=== PATIENT | male | born 1980 | race Caucasian/White ===

== ENCOUNTER 2019-05-13 14:28 | Emergency (ER) | payer SELFPAY | END 2019-05-13 15:05 | disposition left against medical advice (07) | LOC: ER 16:02 | PROVIDERS: Emergency Provider Emergency Medicine | DX: Z53.21 Procedure and treatment not carried out due to patient leaving prior to being seen by health care provider (principal) | CPT/HCPCS: 99281 ==

== ENCOUNTER 2019-05-22 09:58 | Emergency (ER) | payer SELFPAY ==
[2019-05-22 10:09] VITALS: BMI 25.0
[2019-05-22 10:16] VITALS: BP 149/94; PULSE 97; RESP 16; TEMP 36.7; O2SAT 97
--- NOTE | 2019-05-22 10:50 | ED_ITS ---
HPI - Psych General: Chief Complaint: Psychiatric Symptoms Stated Complaint: Cant sleep Time Seen by Provider: 05/22/19 10:40 Source: patient Mode of arrival: ambulatory Limitations: no limitations History of Present Illness: HPI Narrative: Patient comes in today for complaints of depression and difficulty sleeping. Patient routinely takes trazodone and prazosin but has been without the medication for about 3 months now. Patient states he been trying to deal with his depression and insomnia. Patient reports is been real difficult due to his father having some health prob lems. Patient had contacted behavioral health counseling, [facility], and was referred to the ER to restart medications. Patient would also like to have referral to a specialist for his back pain. Associated symptoms: Reports depression Details of plan: no plan Review of Systems General: Reports: 10 or more systems reviewed and unremarkable except in HPI and below Musc: Reports: back pain Psych: Reports: depression PFSH ED PFSH: Statuses (acute, chronic, etc) shown below reflect problem list status as previously entered and may not be historically accurate Social History Smoking and tobacco status: current every day smoker Physical Exam Const: COMMON NORMALS: no apparent distress and oriented x3 GENERAL APPEARANCE: cooperative HENMT: COMMON NORMALS: normocephalic, external ears normal, EAC's normal, TM's normal bilaterally and external nose normal HEAD & SCALP: normal to inspection and normocephalic FACE & SINUS: normal facial exam NOSE: external nose normal GENERAL EAR: hearing not grossly impaired EXTERNAL EAR: Yes external ears normal EXTERNAL AUDITORY CANAL: EAC's normal TYMPANIC MEMBRANE: TM's normal bilaterally MOUTH: oral and palatal mucosa normal THROAT: posterior oropharynx normal Eye: COMMON NORMALS: PERRL and EOMs intact bilaterally PUPIL: Yes PERRL Neck/C-Spine: COMMON NORMALS: full ROM and no lymphadenopathy Lymph: LYMPHATIC: no lymphedema noted Chest: COMMONS NORMALS: inspection of chest normal and palpation of chest normal Resp: COMMON NORMALS: normal respiratory effort and clear to auscultation bilaterally AUSCULTATION: clear to auscultation bilaterally Cardio: COMMON NORMALS: regular rate and regular rhythm RATE: regular rate RHYTHM: regular rhythm GI: COMMON NORMALS: normal to inspection, nondistended, normoactive bowel sounds and non-tender : COMMON NORMALS: Yes no CVA tenderness BLADDER/KIDNEY EXAM: Yes no CVA tenderness Back/Pelvis: COMMON NORMALS: no CVA tenderness LUMBAR SPINE/LOWER BACK: Yes paraspinal muscle tenderness Extremity: COMMON NORMALS: normal to inspection GENERAL: No edema Neuro: COMMON NORMALS: oriented x3, moves all extremities and no focal motor deficits Psych: COMMON NORMALS: mental status grossly normal and cooperative Skin: COMMON NORMALS: no rashes or lesions noted GENERAL SKIN EXAM: no rashes or lesions noted MDM - Psych MDM Narrative: Medical decision making narrative: Patient comes in today for medication for his depression. Patient reports being out of his medications for last 4 months due to recent move into the area. Patient contacted behavioral health counseling and was referred to the ER to restart medications. Exam notes respirations are even lungs are clear to auscultation. Skin is warm and dry color is pink. Differential diagnosis includes depression, suicidal ideation, insomnia, malingering, alcohol abuse. Laboratory values were insignificant for any abnormality. Contacted Dr. Escobar for clearance of positive depression screening. He cleared the patient having suicidal ideation. We will also restart patient on his sertraline for 50 mg daily, trazodone 100 mg at bedtime, and prazosin 1 mg at bedtime. Patient reports understanding agreed to treatment plan and need for follow-up. Case management was requested for patient assistance with referral to [facility], and spinal specialist for chronic back pain, which patient requested. Lab Data: Labs: Lab Results 05/22/19 05/22/19 05/22/19 Range/Units 10:58 11:00 11:00 WBC 6.6 (4.0-10.0) 10^3/ uL RBC 5.48 H (4.1-5.3) 10^6/u L Hgb 16.6 (11.7-16.6) g/dL Hct 52.3 H (42.0-52.0) % MCV 95.4 H (80-94) fL MCH 30.3 (28.0-34.0) pg MCHC 31.7 (30.0-36.0) g/dL RDW 13.5 (12.1-15.1) % Plt Count 286 (130-400) 10^3/c mm MPV 9.2 (7.4-10.4) fL Neut % (Auto) 61.2 % Lymph % (Auto) 26.2 % Lares % (Auto) 7.8 % Eos % (Auto) 3.6 % Baso % (Auto) 0.6 % Neut # (Auto) 4.1 (1.8-7.7) 10^3/u L Lymph # (Auto) 1.7 (0.8-4.8) 10^3/u L Lares # (Auto) 0.5 (0.2-0.9) 10^3/u L Eos # (Auto) 0.2 (0.0-0.8) 10^3/u L Baso # (Auto) 0.0 (0.0-0.1) 10^3/u L Nucleated RBC % (a uto) 0 % Nucleated RBCs # 0.0 /100WBC Sodium 138 (136-145) mmol/L Potassium 4.5 (3.5-5.1) mmol/L Chloride 101 (98-107) mmol/L Carbon Dioxide 27 (22-29) mmol/L Anion Gap 14.5 (5-19) BUN 17 (6-20) mg/dL Creatinine 1.0 (0.7-1.2) mg/dL GFR Calculation 84.5 L (90-130) mL/min Glucose 105 (74-109) mg/dL Calcium 10.0 (8.5-10.5) mg/dL Total Bilirubin 0.3 (0.15-1.2) mg/dL AST 27 (0-40) U/L ALT 30 (0-41) U/L Alkaline Phosphata se 82 (40-130) IU/L Total Protein 7.6 (6.6-8.7) g/dL Albumin 5.2 (3.5-5.2) g/dL Globulin 2.4 (1.3-4.6) g/dL Urine Color Yellow (Yellow) Urine Appearance Clear (CLEAR) Urine pH 6.0 (5-7) Ur Specific Gravit y 1.015 (1.005-1.030) Urine Protein Neg (Negative) Urine Glucose (UA) Norm (Normal) Urine Ketones Negative (Negative) Urine Occult Blood 2+ H (Negative) Urine Nitrate Negative (Negative) Urine Bilirubin Neg (NEGATIVE) Urine Urobilinogen Norm (Negative) mg/dL Ur Leukocyte Shannan ase Negative (Negative) Urine RBC 0-4 H (0-2) /hpf Urine WBC None (0-5) /hpf Ur Squamous Epith Cells 5-10 H (0-5) Urine Bacteria Trace (NONE) Urine Mucus 2+ Salicylates < 0.3 L (3-10) mg/dL Acetaminophen < 5.0 L (10-30) ug/mL Discharge Plan Discharge Patient Disposition: Home, Self-Care Clinical Impression: Depression Qualifiers: Depression Type: major depressive disorder Major depression recurrence: recurrent Active/Remission status: currently active Major depression episode severity: moderate Qualified Code(s): F33.1 - Major depressive disorder, recurrent, moderate Insomnia Qualifiers: Insomnia type: unspecified Qualified Code(s): G47.00 - Insomnia, unspecified Condition: Stable Prescriptions: New sertraline 50 mg tablet 50 mg PO DAILY Qty: 30 RF: 0 prazosin 1 mg capsule 1 mg PO DAILY Qty: 30 RF: 0 trazodone 100 mg tablet 100 mg PO DAILY Qty: 30 RF: 0 Discharge Orders: Discharge Order (Routine); Ordered 05/22/19 Ordered By: Yimi Harrington Discharge Diet: Usual diet Discharge Activity: Resume usual activity Activity Restrictions/Additional Instructions: Follow-up with [facility], Behavioral Health Counseling Drink plenty of fluids Health diet Avoid alcohol with medications Case management will contact you in regards to referral to [facility] and back specialist Discharge Date/Time: 05/22/19 12:11 Coding Level of Care Code ED Optometric Coordinator for Alejandro Barraza Exam Problem Focused
[2019-05-22 11:08] LABS: Basophils % 0.6 %; Eosinophils # 0.2 10^3/uL (0.0-0.8); Eosinophils % 3.6 %; Hematocrit 52.3 % (42.0-52.0); Hemoglobin 16.6 g/dL (11.7-16.6); Lymphocytes # 1.7 10^3/uL (0.8-4.8); Lymphocytes % 26.2 %; Mean Corpuscular HGB Conc 31.7 g/dL (30.0-36.0); Mean Corpuscular Hemoglobin 30.3 pg (28.0-34.0); Mean Corpuscular Volume 95.4 fL (80-94); Mean Platelet Volume 9.2 fL (7.4-10.4); Monocytes # 0.5 10^3/uL (0.2-0.9); Monocytes % 7.8 %; Neutrophils # 4.1 10^3/uL (1.8-7.7); Neutrophils % 61.2 %; Nucleated Red Blood Cells % 0 %; Platelet Count 286 10^3/cmm (130-400); Red Blood Count 5.48 10^6/uL (4.1-5.3); Red Cell Distribution Width 13.5 % (12.1-15.1); White Blood Count 6.6 10^3/uL (4.0-10.0)
[2019-05-22 11:26] LABS: Alanine Aminotransferase 30 U/L (0-41); Albumin Level 5.2 g/dL (3.5-5.2); Alkaline Phosphatase 82 IU/L (40-130); Anion Gap 14.5 (5-19); Aspartate Amino Transferase 27 U/L (0-40); Blood Urea Nitrogen 17 mg/dL (6-20); Carbon Dioxide 27 mmol/L (22-29); Chloride 101 mmol/L (98-107); Creatinine Clr Calc Pharmacy 119.0413; Globulin 2.4 g/dL (1.3-4.6); Glomerular Filtration Rate 84.5 mL/min (90-130); Glucose 105 mg/dL (74-109); Potassium 4.5 mmol/L (3.5-5.1); Sodium 138 mmol/L (136-145); Total Bilirubin 0.3 mg/dL (0.15-1.2); Total Protein 7.6 g/dL (6.6-8.7)
[2019-05-22 11:27] LABS: Add Urine Microscopic? YES; Bilirubin Urine Neg (NEGATIVE); Blood Urine 2+ (Negative); Glucose Urine UA Norm (Normal); Ketones Urine Negative (Negative); Leukocyte Esterase Urine Negative (Negative); Nitrate Urine Negative (Negative); Protein Urine Neg (Negative); Specific Gravity, Urine 1.015 (1.005-1.030); Urine Appearance Clear (CLEAR); Urine Color Yellow (Yellow); Urobilinogen Urine Norm (Negative)
[2019-05-22 11:30] LABS: Acetaminophen < 5.0 ug/mL (10-30); Salicylate < 0.3 mg/dL (3-10)
[2019-05-22 11:40] LABS: Add Urine Culture? No; Bacteria Urine TRACE; Mucus Urine 2+; RBC Urine 0-4 /hpf (0-2)
--- NOTE | 2019-05-22 11:53 | PM.PSYCN ---
Providers/Reason for Consult Consulting Physican/Specialty*: Psychiatry Reason for Consult*: Assess for eminent risk to self or others Psych Consult HPI History of Present Illness Joseph Cueva is a 38 year old male Who has been treated for clinical depression in the past. He presented to the emergency room at the [facility] for reinitiation of medication to help with sleep. During the screening process, he did relate that he does have thoughts of suicide from time to time and that the does have symptoms of depression. However he states that his suicidal ideations are fleeting. When he has them, distracts himself with work or doing something enjoyable or he will go talk with his Paramore who provides emotional support. His main complaint is one of persistent initial insomnia. Sleep is very erratic and he says that he gets perhaps one good night of sleep per week. This has been a prodrome to depressive symptoms in the past. His history is that he began being treated for depression in April 2018. He was started on Zoloft, prazosin, and trazodone. They were effective. However due to barriers in the medical system to getting refills on his medications, they were all stopped in January of this year. These medications were effective and well tolerated. He was on Zoloft 150 mg daily and does not know the dose of prazosin or trazodone. He was hoping that after 9 months of treatment, he would not have this problem any longer as he says he does not have a long history of mental health treatment. He reports that he has good heat capacity. He has some fatigue she does not know whether that's part of depression or insomnia. However there are events in the future that he is looking forward to. He engages in goal-directed enjoyable activities. He does not feel that he is clinically depressed at this time. Discharge Mental Status Exam: The patient is encountered and I emergency room #9. He is accompanied by his normal. Eye contact is good. He is believed to be a reliable informant the best of his ability. Information provided internally consistent and consistent with that in the medical record. Appearance: hygiene is good; no gross neurological deficits., gait is unremarkable; AIMS=0 Speech: Speech is of normal rate and rhythm and easily understood. Thought processes: Thought processes are abstract. Judgment is adequate for safety. Associations: intact Psychotic processes: There is no indication of guarding or paranoia. There is no attention to the internal stimuli. Auditory and visual hallucinations are denied. Judgment: Insight is fair. Problem solving skills are adequate for safety. Orientation: The patient is oriented to person, place time and situation. Memory: no deficits noted in immediate, intermediate, or remote spheres. Attention: The patient is alert and interpersonally engaged. Language: Verbalizations are coherent. Fund of knowledge: Fund of knowledge is adequate. Affect/Mood: Affect is consistent with a euthymic mood. denied suicidal ideation Affective range is appropriate. Psychosis: perception unimpaired except through cognitive distortion; reality testing intact. Diagnoses: Major depression?recurrent, mild severity Primary insomnia Indications: It is reasonable to reinitiate the trazodone prazosin out of the emergency room has improvements of sleep may significantly reduce his symptoms of depression and improve his resiliency in dealing with the stressors in his life. He states that he is intending to return the [facility] who sent him to the emergency room to re-establish treatment. He agrees to go there after being released from the emergency room to set up that appointment. It is not recommended that the Zoloft to be initiated at this time. It would be reasonable to provide a small dose of the Zoloft if the prazosin and trazodone do not resolve his depressive symptoms. However I'll refrain from putting him on the 150 mg dose without first testing response to a less robust treatment. Thank you for this interesting consult. If you have further concerns please do not contact me. PFSH NPU PFSH: Statuses (acute, chronic, etc) shown below reflect problem list status as previously entered and may not be historically accurate Social History Smoking and tobacco status: current every day smoker Vitals/I&O/Wt Last Vital Signs Temp 98.0 F 05/22/19 10:16 Pulse 97 05/22/19 10:16 Resp 16 05/22/19 10:16 BP 149/94 05/22/19 10:16 Pulse Ox 97 05/22/19 10:16 Weight last 48 hrs Weight 86.183 kg Attestations NPU Medical Necessity Statement*: Necessity for further care if up to the discretion of the physician of record. Coding Level of Care Code Acute Hardboard Panel Printer for Alejandro Barraza
[2019-05-22 12:11] VITALS: BP 132/85; PULSE 70; RESP 16; O2SAT 99
--- NOTE | 2019-05-23 14:52 | DCPLANNER ---
is project manager had message to speak with patient about a follow up appointment to [facility] and pain management. is project manager called [phone] spoke with grandmother, left a message for patient to return housing case manager phone call.
--- NOTE | 2019-05-28 10:38 | DCPLANNER ---
Patient called adult protective caseworker back, he stated that he needed a referral to [facility] and pain management. rn case manager explained to patient that for services at [facility] that he would need to do a walk in assessment to get things started. rn case manager gave patient the days and times that he could do that assessment. Patient also stated that he needed a referral to pain management. rn case manager explained to patient that he would have to get a primary care physician, and the referral to pain management has to come from a primary care physician. Patient stated that he would like to get a primary care physician. rn case manager called [facility], spoke with Jolie, a follow up appointment is scheduled for Thursday, June 06, 2019 at 1:00 with SENIOR IOS SOFTWARE ENGINEER, Yumi Garces. rn case manager called patient to inform patient of the scheduled appointment, unable to speak with patient at this time, a voicemail was left for patient to return adult protective caseworker phone call. Patient stated that he does not have insurance at this time, adult protective caseworker mailed patient both of the manager financial applications to fill out and turn in.
--- NOTE | 2019-06-13 09:16 | DCPLANNER ---
Patient came by hospital to see nurse outreach case manager about getting the associate financial analyst paperwork and about a follow up appointment. paid search manager gave patient the associate financial analyst paperwork. paid search manager looked and patient had missed his appointment scheduled with Amy at [facility]. paid search manager rescheduled his appointment for Sunday, June 18, 2019 at at 10:00 with Amy Garces at [facility]. paid search manager gave patient the appointment information. paid search manager explained to the patient that if he could not keep this appointment that he would need to call and cancel or reschedule, that he has one no show on him. paid search manager also explained the CPR[facility] program at [facility] that patient might be interested in.
--- NOTE | 2019-06-20 14:37 | DCPLANNER ---
Patient did not attend appointment scheduled for 06.06.19 at [facility] for primary care.
== END 2019-05-22 12:11 | disposition home or self-care (01) ==
PROVIDERS: Family Medicine; Emergency Provider Nurse Practitioner Family
DX: F33.1 Major depressive disorder, recurrent, moderate (principal); G47.00 Insomnia, unspecified; F17.210 Nicotine dependence, cigarettes, uncomplicated
CPT/HCPCS: 12345; 36415; 80053; 80307; 81001; 85025; 99284

== ENCOUNTER 2019-07-18 14:32 | Emergency (ER) | payer SELFPAY ==
[2019-07-18 14:52] VITALS: BP 133/72; PULSE 84; RESP 18; TEMP 36.7; O2SAT 99; BMI 23.7
--- NOTE | 2019-07-18 14:58 | ED_ITS ---
Entered by Darcie Mathur, acting as scribe for Gaetano Rodriguez MD, [facility] HPI - Fall General: Chief Complaint: Head Injury Stated Complaint: Head injury/fell down steps Time Seen by Provider: 07/18/19 14:42 Source: patient Mode of arrival: ambulatory Limitations: no limitations History of Present Illness: HPI Narrative: 38 yo male presents with a head in [facility] due to a fall. pt states this occurred last night. pt has had confusion and neck pain. pt states he had LOC after he was back in the house. pt denies any other symptoms at this time. He has a laceration to his right temporal scalp which he has closed with butterfly bandaids. He wants to be checked out for head injury. 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) Place fall occurred: home Prolonged down time: minute(s) Symptoms prior to fall: none Context: tripped/slipped Location of injury: head and neck Severity: moderate Quality: throbbing Associated symptoms-after fall: Reports no associated symptoms, chest pain and headache(s); Denies abdominal pain Review of Systems General: Reports: 10 or more systems reviewed and unremarkable except in HPI and below Const: Denies: fever, chills or body aches Eyes: Denies: change in vision or blurry vision ENMT: Denies: throat pain, enlarged tonsils, painful swallowing, hoarseness, mouth pain or swelling of lips/tongue Card: Reports: chest pain; Denies: palpitations, irregular heart rhythm, edema or swelling of feet/ankles Resp: Denies: shortness of breath, productive cough or non-productive cough GI: Denies: abdominal pain, nausea or vomiting : Denies: flank pain, painful urination, urinary frequency, urinary urgency or urinary hesitancy Musc: Denies: back pain or extremity swelling Skin/Breast: Denies: rash, itching or redness Neuro: Reports: headache Endo: Denies: excessive urination, excessive thirst or tired all the time PFSH ED PFSH: Social History Smoking and tobacco status: current some day smoker Current gender identity: Male Physical Exam Const: COMMON NORMALS: no apparent distress, average body habitus, oriented x3, no limitations, healthy appearing, alert and well nourished HENMT: COMMON NORMALS: normocephalic and moist oral mucous membranes HEAD & SCALP: normocephalic and laceration (6 cm laceration to the right religious region. Patient has closed the wound using butterfly Band-Aids. Wound is no bleeding, feels pretty well, no signs of erythema or infection.) right temporal Details of head laceration: linear Eye: COMMON NORMALS: PERRL, EOMs intact bilaterally, conjunctivae normal and no scleral icterus CONJUNCTIVA: Yes conjunctivae normal PUPIL: Yes PERRL Neck/C-Spine: COMMON NORMALS: no meningeal signs and no JVD CERVICAL SPINE: Yes cervical spine tenderness Chest: COMMONS NORMALS: inspection of chest normal CHEST: Yes localized rib tenderness with anteroposterior compression Resp: COMMON NORMALS: normal respiratory effort, no retractions, no use of accessory muscles, clear to auscultation bilaterally and percussion normal AUSCULTATION: clear to auscultation bilaterally PERCUSSION: percussion normal Cardio: COMMON NORMALS: no JVD, regular rate, regular rhythm, S1 normal heart sound, S2 normal heart sound, no gallops, no clicks, no murmurs, no rub and peripheral pulses 2+ throughout RATE: regular rate RHYTHM: regular rhythm HEART SOUNDS: S1 normal and S2 normal PERIPHERAL PULSES: pulses 2+ throughout GI: COMMON NORMALS: normal to inspection, nondistended, normoactive bowel sounds, soft to palpation, non-tender, no hepatosplenomegaly, no masses and no bruits PALPATION: Yes soft and Yes no hepatosplenomegaly : COMMON NORMALS: Yes no CVA tenderness BLADDER/KIDNEY EXAM: Yes no CVA tenderness Back/Pelvis: COMMON NORMALS: no CVA tenderness Extremity: COMMON NORMALS: normal to inspection, full ROM, normal capillary refill, no calf tenderness and no pedal edema Neuro: COMMON NORMALS: oriented x3 SENSORIUM/ORIENTATION: Yes alert MENINGEAL SIGNS: Yes no meningeal signs Skin: COMMON NORMALS: no rashes or lesions noted, no wounds, skin turgor normal, no jaundice, no petechiae and no mottling GENERAL SKIN EXAM: no rashes or lesions noted and turgor normal Course Vital Signs: Vital signs: Vital Signs Temperature 98.1 F 07/18/19 14:52 Pulse Rate 84 07/18/19 14:52 Respiratory Rate 18 07/18/19 14:52 Blood Pressure 133/72 07/18/19 14:52 Pulse Oximetry 99 07/18/19 14:52 MDM - Fall MDM Narrative: Medical decision making narrative: Patient with a mild closed head injury and a scalp laceration. The patient already performed wound care earlier today after the fall. The fall happened almost 12 hours ago at which time the patient cleaned and closed the wound himself. Head CT, CT of his cervical spine, and x-ray of his ribs were negative for acute fracture or dislocation or intracranial bleeding. He is discharged home with head injury instructions. Medical Records: Attestation: I reviewed the patient's medical records. Imaging Data^: Other Xray: Radiologist's impression: [place] [address] XRay Report Signed Patient: Torrey Cueva #: [id number] : 1980Acct#:[id number] Age/Sex: 38 / MADM Date: 07/18/19 Loc: ERRoom/Bed: Attending Dr: Ordering Provider/Ordering MD: Gaetano Rodriguez MD, [facility] Date of Service: 07/18/19 Procedure(s): XR ribs RT mn 3V w CXR1V 69639 Accession Number(s): [id number] Report Number: [id number] WS: [id number] XR ribs RT mn 3V w CXR1V [id number] REASON FOR EXAM: Fall FINDINGS: The lung ignacio are normally aerated. There is no fluid seen. The right rib study multiple views did not show a definite fracture. There is no pneumothorax seen. XR/XR ribs RT mn 3V w CXR1V [id number] IMPRESSION: Negative right rib study. Dictated By:Leonides Soriano DO Signed By:Leonides Soriano DOSigned Date/Time:07/18/19 1541 Discharge Plan Discharge Patient Disposition: Home, Self-Care Clinical Impression: Closed head injury Qualifiers: Encounter type: initial encounter Qualified Code(s): S09.90XA - Unspecified injury of head, initial encounter Laceration of scalp Qualifiers: Encounter type: initial encounter Qualified Code(s): S01.01XA - Laceration without foreign body of scalp, initial encounter Condition: Stable Prescriptions: Continued sertraline 50 mg tablet 50 mg PO DAILY Qty: 30 RF: 0 Advil Liqui-Gel 200 mg Capsule 400 mg PO BID RF: 0 prazosin 1 mg capsule 1 mg PO BEDTIME RF: 0 trazodone 100 mg tablet 100 mg PO BEDTIME PRN (Reason: Sleep) RF: 0 Discharge Orders: Discharge Order (Routine); Ordered 07/18/19 Ordered By: Gaetano Rodriguez Referrals: Rajni Garces FNP [Primary Care Provider] - 4-7 days Patient Instructions: Concussion/Head Injury - Adult, Minor Head Injury (ED) Activity Restrictions/Additional Instructions: Return for any new or worsening symptoms. Return for any concerns especially persistent headache, persistent vomiting, change in consciousness, difficulty with your gait. Follow-up with your primary care provider within 3 days. Try to avoid loud sounds, screens, bright lights, and rest your brain for the next 1 week. Drink plenty of water to keep well-hydrated. Discharge Date/Time: 07/18/19 17:00 Coding Level of Care Code ED Licensed Optical Dispenser for Chg Fwd Exam Comprehensive The documentation recorded by the Kevan isbell Bridget Annette, accurately reflects the service I personally performed and the decisions made by , Gaetano Rodriguez MD, [facility] Jul 18, 2019 14:32
--- NOTE | 2019-07-18 15:08 | CT_ITS ---
WS: [id number] CT HEAD TECHNIQUE: Noncontrast CT of the head obtained from the skullbase to the vertex. CLINICAL INFORMATION: Fall, head injury, loss of consciousness COMPARISON: None. DLP: 764.[address] scans at [facility] use at least one of these dose optimization techniques: automat ed exposure control; mA and/or kV adjustment per patient size (includes targeted exams where dose is matched to clinical indication); or iterative reconstruction. FINDINGS: No evidence of intracranial hemorrhage or mass effect. Ventricular system and basal cisterns are bradford nt. Mild to moderate small vessel changes with mild to moderate parenchymal volume loss. No extra-ax ial fluid collections. No evidence of mass or mass effect. Normal kurtz-white differentiation. Paranasal sinuses and mastoid air cells are well aerated.Soft tissue edema overlying the frontal calv arium. CT/CT head wo con* [id number] IMPRESSION: 1. No evidence of intracranial hemorrhage or mass effect. 2. Soft tissue edema overlying the frontal calvarium. No visualized fractures. 3. No acute intracranial findings.
--- NOTE | 2019-07-18 15:13 | XR_ITS ---
WS: [id number] XR ribs RT mn 3V w CXR1V [id number] REASON FOR EXAM: Fall FINDINGS: The lung ignacio are normally aerated. There is no fluid seen. The right rib study multiple views did not show a definite fracture. There is no pneumothorax seen. XR/XR ribs RT mn 3V w CXR1V [id number] IMPRESSION: Negative right rib study.
--- NOTE | 2019-07-18 15:13 | CT_ITS ---
WS: [id number] CT CERVICAL TRAUMA TECHNIQUE: Noncontrast CT of the cervical spine with coronal and sagittal reformatted images. CLINICAL INFORMATION: Fall neck pain COMPARISON: None. DLP: 657.[address] scans at [facility] use at least one of these dose optimization techniques: automat ed exposure control; mA and/or kV adjustment per patient size (includes targeted exams where dose is matched to clinical indication); or iterative reconstruction. FINDINGS: Straightening of the normal cervical lordosis. Normal craniocervical junction. Normal C1-C2 articulat ion. Dens is normal in appearance. Normal occipital condyles. No high-grade spinal canal narrowing. N ormal C1 ring. No evidence of acute fracture or dislocation. Normal prevertebral soft tissues. Mastoids air cells are well aerated. CT/CT cervical spin wo con* [id number] IMPRESSION: No evidence of acute fracture or dislocation.
[2019-07-18 16:57] VITALS: BP 119/75; PULSE 80; RESP 16; O2SAT 100
== END 2019-07-18 17:00 | disposition home or self-care (01) ==
PROVIDERS: Emergency Provider Family Medicine; PCP Nurse Practitioner
DX: S01.01XA Laceration without foreign body of scalp, initial encounter (principal); S09.90XA Unspecified injury of head, initial encounter; F17.200 Nicotine dependence, unspecified, uncomplicated; W10.9XXA Fall (on) (from) unspecified stairs and steps, initial encounter; Y92.009 Unspecified place in unspecified non-institutional (private) residence as the place of occurrence of the external cause
CPT/HCPCS: 12345; 70450; 71101; 72125; 99281; 99283

== ENCOUNTER 2021-05-29 19:44 | Emergency (ER) | payer SELFPAY ==
[2021-05-29 19:47] VITALS: BP 132/101; PULSE 122; RESP 22; TEMP 37.1; O2SAT 99; BMI 24.4
--- NOTE | 2021-05-29 19:52 | USR_ITS ---
PROCEDURE INFORMATION: Exam: US Duplex Left Lower Extremity Arteries Or Arterial Bypass Grafts Exam date and time: 05/29/2021 7:52 PM Age: 40 years old Clinical indication: Pain; Leg, lower; Left; Additional info: Foot pain TECHNIQUE: Imaging protocol: Left Real-time duplex scan of the arteries or arterial bypass grafts of the left lower extremity with 2-D kurtz scale, color Doppler flow and spectral waveform analysis. Images documented and saved. COMPARISON: No relevant prior studies available. FINDINGS: Left common femoral artery: No occlusion or significant stenosis. Normal waveform. Left superficial femoral artery: No occlusion or significant stenosis. Normal waveform. Left popliteal artery: No occlusion or significant stenosis. Normal waveform. Left calf/foot arteries: No occlusion or significant stenosis in the visualized arteries. Normal waveforms. Dorsalis pedis artery is patent. US/CV arterial duplex [facility] [id number] IMPRESSION: No stenosis or occlusion.
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
[2021-05-29 20:38] VITALS: RESP 22
[2021-05-29] MEDS: HYDROmorphone 1 mg/mL INJ 1 mL IVP (20:38)
[2021-05-29] MEDS: ondansetron 2 mg/ML SDV 2 mL 4 MG IVP (20:40)
[2021-05-29 20:43] VITALS: BP 146/88; PULSE 109; O2SAT 96
[2021-05-29] MEDS: tetanus-dipt-pertussis 0.5 mL SDV IM (20:50)
[2021-05-29] MEDS: dexamethasone 10 mg/mL INJ IVP (21:30)
[2021-05-29 21:41] VITALS: BP 140/99; PULSE 102; O2SAT 96
== END 2021-05-29 21:51 | disposition home or self-care (01) ==
PROVIDERS: Emergency Provider Emergency Medicine; PCP Nurse Practitioner
DX: M54.42 Lumbago with sciatica, left side (principal); F17.210 Nicotine dependence, cigarettes, uncomplicated; Y04.2XXA Assault by strike against or bumped into by another person, initial encounter; Z23 Encounter for immunization
CPT/HCPCS: 70450; 70486; 90471; 90715; 93926; 96374; 96375; 99284; J1100; J1170; J2405

== ENCOUNTER 2022-02-26 13:16 | Emergency (ER) | payer MEDICAID, SELFPAY ==
[2022-02-26 13:20] VITALS: BP 105/79; PULSE 65; RESP 18; TEMP 36.4; O2SAT 98; BMI 25.7
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
--- NOTE | 2022-02-26 13:41 | XRR_ITS ---
PROCEDURE INFORMATION: Exam: XR Lumbosacral Spine Exam date and time: 02/26/2022 2:11 PM Age: 41 years old Clinical indication: Low back pain TECHNIQUE: Imaging protocol: Radiologic exam of the lumbosacral spine. Views: 2 or 3 views. COMPARISON: No relevant prior studies available. FINDINGS: Bones/joints: No acute fracture. Normal alignment. Moderate multilevel endplate degenerative changes noted in the lower thoracic and upper lumbar spine. Soft tissues: Unremarkable. XR/XR lumbar spine 2-3V* [id number] IMPRESSION: No acute findings. Moderate multilevel DJD in the lower thoracic and upper lumbar spine.
[2022-02-26 13:46] VITALS: RESP 17; O2SAT 97
[2022-02-26] MEDS: morphine 4 mg/mL SDV 1 mL IVP (13:46)
[2022-02-26] MEDS: orphenadrine 30 mg/mL Inj 2 mL 60 MG IVP (13:46)
[2022-02-26] MEDS: ketorolac 30 mg/mL INJ IVP (15:26)
[2022-02-26 15:29] VITALS: BP 124/89; PULSE 63; RESP 16; O2SAT 100
[2022-02-26 16:00] VITALS: BP 122/88; PULSE 94; RESP 18; O2SAT 99
[2022-02-26 16:23] VITALS: BP 117/79; PULSE 81; RESP 15; TEMP 36.6; O2SAT 100
--- NOTE | 2022-02-28 10:39 | DCPLANNER ---
Addendum entered by Luisa Guajardo 03/08/22 14:32: Patient had a follow up appointment scheduled for 03.07.22 with Reginaldo Linares at ortho - patient did attend appointment. Original Note: retail branch manager had message to schedule a follow up appointment for patient with ortho. retail branch manager sent patients information to the front office staff at ortho. Patients information will be printed and reviewed. Clinic will call patient with appointment information.
== END 2022-02-26 16:37 | disposition home or self-care (01) ==
PROVIDERS: Emergency Provider Physician Assistant; PCP Nurse Practitioner
DX: M47.816 Spondylosis without myelopathy or radiculopathy, lumbar region (principal); M54.50 Low back pain, unspecified; F17.210 Nicotine dependence, cigarettes, uncomplicated
CPT/HCPCS: 72100; 96374; 96375; 99284; J1885; J2270; J2360; J2930

== ENCOUNTER → 2022-03-07 15:31 | Outpatient (BNVA) | payer MEDICAID, SELFPAY | PROVIDERS: PCP Nurse Practitioner; Referring Provider Physician Assistant; Visit Provider Physician Assistant | DX: M43.8X4 Other specified deforming dorsopathies, thoracic region (principal) | CPT/HCPCS: 72072; 72110 ==

== ENCOUNTER 2022-07-18 14:29 | Emergency (ER) | payer MEDICAID, SELFPAY ==
[2022-07-18 14:39] VITALS: BP 144/89; PULSE 107; RESP 20; TEMP 36.7; O2SAT 98
--- NOTE | 2022-07-18 14:54 | XR_ITS ---
WS: [id number] Portable AP upright chest, 07/18/2022 Clinical Data: cough, sob Comparison: PA chest, 07/18/2019 Findings: No nodules, masses or effusions are seen. The heart is normal. The pulmonary vascularity is not increased. No pneumonia or pneumothorax is seen. There is a dextroscoliosis of the thoracic spin e. XR/XR chest 1V portable [id number] Impression: Negative chest.
[2022-07-18 15:38] LABS: Basophils # 0.1 10^3/uL (0.0-0.1); Basophils % 0.6 %; Eosinophils # 0.6 10^3/uL (0.0-0.8); Eosinophils % 4.2 %; Hematocrit 52.8 % (42.0-52.0); Hemoglobin 16.5 g/dL (11.7-16.6); Lymphocytes # 2.5 10^3/uL (0.8-4.8); Lymphocytes % 18.8 %; Mean Corpuscular HGB Conc 31.3 g/dL (30.0-36.0); Mean Corpuscular Hemoglobin 28.7 pg (28.0-34.0); Mean Platelet Volume 9.6 fL (7.4-10.4); Monocytes % 7.9 %; Neutrophils # 8.95 10^3/uL (1.8-7.7); Neutrophils % 68.1 %; Nucleated Red Blood Cells % 0 %; Platelet Count 297 10^3/cmm (130-400); Red Blood Count 5.74 10^6/uL (4.1-5.3); Red Cell Distribution Width 12.9 % (12.1-15.1); White Blood Count 13.1 10^3/uL (4.0-10.0)
[2022-07-18 15:57] LABS: Alanine Aminotransferase 22 U/L (0-41); Albumin Level 4.1 g/dL (3.5-5.2); Alkaline Phosphatase 93 U/L (40-130); Aspartate Amino Transferase 18 U/L (0-40); Blood Urea Nitrogen 8 mg/dL (6-20); Carbon Dioxide 22 mmol/L (22-29); Chloride 102 mmol/L (98-107); Creatinine Clr Calc Pharmacy 150.1098; Globulin 3.5 g/dL (1.3-4.6); Glomerular Filtration Rate 107.6 mL/min (90-130); Glucose 69 mg/dL (65-115); Osmolality Calculated 277 mOsm/kg (285-295); Sodium 135 mmol/L (136-145); Total Bilirubin 0.2 mg/dL (0.15-1.2); Total Protein 7.6 g/dL (6.6-8.7)
[2022-07-18 15:59] VITALS: BP 141/88; PULSE 88; RESP 16; O2SAT 100
[2022-07-18 16:00] VITALS: BP 131/85; PULSE 82; RESP 16; O2SAT 99
[2022-07-18 16:04] LABS: Procalcitonin 0.05 ng/mL (0-0.5)
--- NOTE | 2022-07-18 16:17 | W.ED.URI ---
HPI - URI/Sore Throat General: Chief Complaint: COVID symptoms Stated Complaint: sob/weak Time Seen by Provider: 07/18/22 16:10 Source: patient Mode of arrival: ambulatory Limitations: no limitations History of Present Illness: Patient is a 41-year-old male who presents to ED today with complaint of nasal congestion, sore throat, chest congestion, productive cough over the past week or so. He states his girlfriend had similar symptoms but she was only symptomatic for 1 to 2 days. He does report a fever several days ago of over 100.0. Patient states his cough is productive with green/yellow sputum. No hemoptysis. MD elicited complaint: cough, sore throat, nasal congestion and sinus pain Onset (ago): day(s) Consistency: constant Severity: moderate Description of mucous: yellow and green Able to tolerate fluids by mouth: Yes Relieving factors: nothing Context: sick contacts (girlfriend) Associated symptoms: Reports chills, fever(s), nasal congestion and sinus pain; Deny abdominal pain, chest pain, diarrhea, epistaxis, ear or mastoid pain, headache(s), nausea or vomiting Review of Systems Const: Reports: fever(s), chills, body aches and fatigue Eyes: Denies: change in vision, blurry vision, photophobia, floaters or seeing flashes ENMT: Reports: throat pain, odynophagia, nasal discharge, nasal congestion and sinus pain; Denies: mouth pain, swelling of lips/tongue, oral sores, ear or mastoid pain, ear discharge, nasal obstruction or epistaxis Card: Denies: chest pain, irregular heart rhythm, edema, swelling of feet/ankles, lightheadedness, syncope, pre-syncope or orthopnea Resp: Reports: productive cough and chest congestion; Denies: dyspnea, wheezing or hemoptysis GI: Denies: abdominal pain, nausea, vomiting or diarrhea Musc: Denies: neck pain, back pain, extremity pain or joint pain Skin/Breast: Denies: rash Neuro: Denies: headache(s), numbness in extremities, weakness in extremities, sensory changes or dizziness [facility] ED PFSH: Medical History Bipolar 1 disorder, mixed, moderate Psychiatric care Family History Grandmother Diabetes Hypertension Father Hypertension Social History Smoking and tobacco status: current some day smoker Alcohol intake: current Alcohol intake frequency: holidays/special occasions only Current gender identity: Male Physical Exam Const: COMMON NORMALS: no acute distress, average body habitus, patient oriented x3, no limitations, healthy appearing, alert and well nourished GENERAL APPEARANCE: cooperative ORIENTATION/CONSCIOUSNESS: Yes awake, Yes oriented to person, Yes oriented to place and Yes oriented to time HENMT: COMMON NORMALS: normocephalic, Normal external nose present, moist oral mucous membranes, oropharynx normal and gingiva normal HEAD & SCALP: normal to inspection and normocephalic FACE & SINUS: normal facial exam NOSE: Normal external nose present MOUTH: Normal oral and palatal mucosa present, lip normal and tongue normal TEETH & GINGIVA: Yes fair dentition THROAT: posterior oropharynx normal, tonsils normal and uvula midline Eye: GENERAL EYE: appearance normal, both eyes and all related structures Neck/C-Spine: COMMON NORMALS: full ROM, no lymphadenopathy and no meningeal signs Chest: COMMONS NORMALS: normal inspection of the chest Resp: COMMON NORMALS: normal respiratory effort and clear to auscultation bilaterally AUSCULTATION: clear to auscultation bilaterally OTHER: course sounding cough Cardio: COMMON NORMALS: regular rate and regular rhythm RATE: regular rate RHYTHM: regular rhythm Extremity: COMMON NORMALS: normal to inspection, no clubbing, cyanosis or edema, no calf tenderness and no pedal edema GENERAL: Yes normal exam except as noted Neuro: COMMON NORMALS: patient oriented x3 SENSORIUM/ORIENTATION: Yes alert, Yes oriented to person, Yes oriented to place and Yes oriented to time MENINGEAL SIGNS: Yes no meningeal signs Course Vital Signs: Vital signs: Vital Signs Temperature 98.1 F 07/18/22 14:39 Pulse Rate 82 07/18/22 16:00 Respiratory Rate 16 07/18/22 16:00 Blood Pressure 131/85 07/18/22 16:00 Pulse Oximetry 99 07/18/22 16:00 Oxygen Delivery Me thod 07/18/22 16:00 MDM - URI/Sore Throat Medical Decision Making Vital signs are stable. Blood work overall is fairly unremarkable. CXR is normal. Respiratory panel collected and pending. We will go and place him on antibiotics, steroids, albuterol inhaler. Will contact if anything on respiratory panel comes back positive. Recommend he follow-up with primary care in one week if symptoms do not seem to be improving. Return ED precautions given. Lab Data 07/18/22 15:33 07/18/22 15:33 Radiology Impressions Chest X-Ray 07/18/22 14:54 Impression: Negative chest. Laboratory Results WBC 13.1 10^3/uL (4.0-10.0) H 07/18/22 15:33 RBC 5.74 10^6/uL (4.1-5.3) H 07/18/22 15:33 Hgb 16.5 g/dL (11.7-16.6) 07/18/22 15:33 Hct 52.8 % (42.0-52.0) H 07/18/22 15:33 MCV 92.0 fl (80-94) 07/18/22 15:33 MCH 28.7 pg (28.0-34.0) 07/18/22 15:33 MCHC 31.3 g/dL (30.0-36.0) 07/18/22 15:33 RDW 12.9 % (12.1-15.1) 07/18/22 15:33 Plt Count 297 10^3/cmm (130-400) 07/18/22 15:33 MPV 9.6 fL (7.4-10.4) 07/18/22 15:33 Neut % (Auto) 68.1 % 07/18/22 15:33 Lymph % (Auto) 18.8 % 07/18/22 15:33 [place] % (Auto) 7.9 % 07/18/22 15:33 Eos % (Auto) 4.2 % 07/18/22 15:33 Baso % (Auto) 0.6 % 07/18/22 15:33 Neut # (Auto) 8.95 10^3/uL (1.8-7.7) H 07/18/22 15:33 Lymph # (Auto) 2.5 10^3/uL (0.8-4.8) 07/18/22 15:33 [place] # (Auto) 1.0 10^3/uL (0.2-0.9) H 07/18/22 15:33 Eos # (Auto) 0.6 10^3/uL (0.0-0.8) 07/18/22 15:33 Baso # (Auto) 0.1 10^3/uL (0.0-0.1) 07/18/22 15:33 Nucleated RBC % (auto) 0 % 07/18/22 15:33 Nucleated RBCs # 0.0 /100WBC 07/18/22 15:33 Sodium 135 mmol/L (136-145) L 07/18/22 15:33 Potassium 4.0 mmol/L (3.5-5.1) 07/18/22 15:33 Chloride 102 mmol/L (98-107) 07/18/22 15:33 Carbon Dioxide 22 mmol/L (22-29) 07/18/22 15:33 Anion Gap 15.0 (5-19) 07/18/22 15:33 BUN 8 mg/dL (6-20) 07/18/22 15:33 Creatinine 0.8 mg/dL (0.7-1.2) 07/18/22 15:33 GFR Calculation 107.6 mL/min (90-130) 07/18/22 15:33 Glucose 69 mg/dL (65-115) 07/18/22 15:33 Calculated Osmolality 277 mOsm/kg (285-295) L 07/18/22 15:33 Calcium 9.0 mg/dL (8.5-10.5) 07/18/22 15:33 Total Bilirubin 0.2 mg/dL (0.15-1.2) 07/18/22 15:33 AST 18 U/L (0-40) 07/18/22 15:33 ALT 22 U/L (0-41) 07/18/22 15:33 Alkaline Phosphatase 93 U/L (40-130) 07/18/22 15:33 Total Protein 7.6 g/dL (6.6-8.7) 07/18/22 15:33 Albumin 4.1 g/dL (3.5-5.2) 07/18/22 15:33 Globulin 3.5 g/dL (1.3-4.6) 07/18/22 15:33 Procalcitonin 0.05 ng/mL (0-0.5) 07/18/22 15:33 Discharge Plan Discharge Patient Disposition: Home Clinical Impression: Bronchitis Condition: Stable Prescriptions: New prednisone 10 mg tablet 60 mg PO DAILY 5 Days Qty: 30 0RF doxycycline monohydrate 100 mg capsule 100 mg PO Q12H 10 Days Qty: 20 0RF albuterol sulfate 90 mcg/actuation HFA aerosol inhaler 2 inh INHALATION Q4H PRN (Reason: shortness of breath or wheezing) Qty: 6.7 0RF No Action duloxetine 30 mg capsule,delayed release(DR/EC) 60 mg PO DAILY Qty: 60 0RF Rx Instructions: For 1 week:Take one capsule by mouth every morning, then increase to two capsules by mouth every morning prazosin 1 mg capsule 2 mg PO .q hs Qty: 60 0RF Rx Instructions: Take one capsule daily at bedtime for 1 week, then two capsules daily at bedtime Discharge Orders: Discharge ED (Routine); Ordered 07/18/22 Ordered By: Iman Carrillo Referrals: Rajni Garces FNP [Primary Care Provider] - Patient Instructions: Acute Bronchitis (ED) Coding Level of Care Code ED Image Editor for Alejandro Barraza
[2022-07-18 18:39] LABS: Adenovirus Not Detected (NOT DETECT); Chlamydia Pneumoniae Not Detected (NOT DETECT); Coronavirus 229E,HKU1,NL63,OC4 Not Detected (NOT DETECT); Human Metapneumovirus Not Detected (NOT DETECT); Human Rhinovirus/Enterovirus Detected (NOT DETECT); Influenza A Not Detected (NOT DETECT); Influenza A H1 Not Detected (NOT DETECT); Influenza A H1-2009 Not Detected (NOT DETECT); Influenza A H3 Not Detected (NOT DETECT); Influenza B Not Detected (NOT DETECT); Mycoplasma Pneumoniae Not Detected (NOT DETECT); Parainfluenza Virus Type 1 Not Detected (NOT DETECT); Parainfluenza Virus Type 2 Not Detected (NOT DETECT); Parainfluenza Virus Type 3 Not Detected (NOT DETECT); Parainfluenza Virus Type 4 Not Detected (NOT DETECT); Respiratory Syncytial Virus A Not Detected (NOT DETECT); Respiratory Syncytial Virus B Not Detected (NOT DETECT); SARS-COV-2 Not Detected (NOT DETECT)
== END 2022-07-18 16:47 | disposition home or self-care (01) ==
PROVIDERS: Emergency Provider Physician Assistant; PCP Family Medicine
DX: J40 Bronchitis, not specified as acute or chronic (principal); F17.210 Nicotine dependence, cigarettes, uncomplicated
CPT/HCPCS: 36415; 71045; 80053; 84145; 85025; 87486; 87581; 87633; 99284

== ENCOUNTER 2023-08-16 14:53 | Inpatient (IN) | payer MEDICAID, SELFPAY ==
[2023-08-16 15:26] VITALS: BP 128/84; PULSE 110; RESP 16; TEMP 36.7; O2SAT 99
[2023-08-16 16:25] LABS: Basophils # 0.1 10^3/uL (0.0-0.1); Basophils % 0.7 %; Eosinophils # 0.7 10^3/uL (0.0-0.8); Eosinophils % 6.4 %; Hematocrit 43.8 % (37-53); Lymphocytes # 1.9 10^3/uL (0.8-4.8); Lymphocytes % 18.3 %; Mean Corpuscular HGB Conc 32.2 g/dL (30-55); Mean Corpuscular Hemoglobin 29.3 pg (27-33); Mean Corpuscular Volume 90.9 fl (82-101); Mean Platelet Volume 9.3 fL (7.4-10.4); Monocytes # 0.9 10^3/uL (0.2-0.9); Monocytes % 8.2 %; Neutrophils # 7.01 10^3/uL (1.8-7.7); Neutrophils % 66.1 %; Nucleated Red Blood Cells % 0 %; Platelet Count 293 10^3/cmm (157-399); Red Blood Count 4.82 10^6/uL (3.85-5.65); Red Cell Distribution Width 13.1 % (12.1-15.1)
--- NOTE | 2023-08-16 16:31 | ED_ITS ---
HPI - Extremity Problem 2 General: Chief complaint: Extremity Problem,Nontraumatic Stated complaint: left leg pain, red, warm Time Seen by Provider: 08/16/23 16:31 Source: patient Mode of arrival: ambulatory History of Present Illness: 42-year-old male presents to the emergen cy room left leg is red and warm from the knee down. Few days ago he got a scrape on the anterior tibia and developed into an abscess has been draining and at home he got a fair amount of purulent material out of it however now it has had localized erythema spreading throughout the entire lower leg circumferentially from the knee distal to the foot. It is exquisitely tender to touch and swollen. No history of DVT no chest pain or shortness of breath he is mildly tachycardic MD Complaint: extremity pain and extremity swelling Associated symptoms: Reports fever(s); Deny chest pain or rash Review of Systems 2 Const: Reports: fever(s); Denies: chills Card: Denies: chest pain Resp: Denies: dyspnea GI: Denies: abdominal pain : Denies: dysuria, urinary frequency or urinary urgency Musc: Denies: neck pain or back pain Skin/Breast: Denies: rash PFSH ED 2 PFSH: Medical History Psychiatric care Bipolar 1 disorder, mixed, moderate Family History Grandmother Diabetes Hypertension Father Hypertension Social History Smoking and tobacco/nicotine status: current some day tobacco/nicotine user Alcohol intake: current Alcohol intake frequency: holidays/special occasions only Substance/Drug Use: former Current gender identity: Male Physical Exam 2 Const: GENERAL APPEARANCE: cooperative and comfortable O RIENTATION/CONSCIOUSNESS: Yes awake, Yes oriented to person, Yes oriented to place and Yes oriented to time HENMT: COMMON NORMALS: normocephalic, atraumatic and hearing grossly normal bilaterally HEAD & SCALP: normocephalic and atraumatic Resp: COMMON NORMALS: normal respiratory effort, No retractions, No use of accessory muscles and clear to auscultation bilaterally AUSCULTATION: clear to auscultation bilaterally Cardio: COMMON NORMALS: regular rhythm and No murmurs present (Cardio) R ATE: tachycardic RHYTHM: regular rhythm GI: COMMON NORMALS: Soft to palpation and No hepatosplenomegaly present A USCULTATION: Yes normoactive bowel sounds PALPATION: Yes Soft to palpation, No Tenderness to palpation present (GI), No Guarding due to palpation present (GI) and Yes No hepatosplenomegaly present Extremity: COMMON NORMALS: normal to inspection, capillary refill normal, no clubbing, cyanosis or edema, no calf tenderness and no pedal edema Neuro: SENSORIUM/ORIENTATION: Yes oriented to person, Yes oriented to place and Yes oriented to time Skin: OTHER: Examination of the left lower leg significantly swollen and inflamed erythematous indurated there is a dry eschar on the proximal anterior tibia seems to be the focus of it it spreads both distally and proximally. There are some Course 2 Vital Signs: Vital signs: Vital Signs Temperature 98.0 F 08/16/23 15:26 Pulse Rate 110 H 08/16/23 15:26 Respiratory Rate 16 08/16/23 15:26 Blood Pressure 128/84 08/16/23 15:26 Pulse Oximetry 99 08/16/23 15:26 Oxygen Delivery Me thod Room Air 08/16/23 15:26 MDM - Extremity (Nontraumatic) Medical Decision Making Ultrasound does not show any DVT only a small subcutaneous fluid collection at the site of the eschar with seem to have emanated from. He is tachycardic however. No leukocytosis. Discussed with hospitalist will admit to started on vancomycin cultures have been done. Orders written. Clinically no sign of compartment syndrome at this time Medical Records I reviewed the patient's medical records. Lab Data I reviewed the patient's lab results. 08/16/23 16:16 Laboratory Results WBC 10.60 10^3/uL (3.29-11.43) 08/16/23 16:16 RBC 4.82 10^6/uL (3.85-5.65) 08/16/23 16:16 Hgb 14.10 g/dL (11.27-16.99) 08/16/23 16:16 Hct 43.8 % (37-53) 08/16/23 16:16 MCV 90.9 fl (82-101) 08/16/23 16:16 MCH 29.3 pg (27-33) 08/16/23 16:16 MCHC 32.2 g/dL (30-55) 08/16/23 16:16 RDW 13.1 % (12.1-15.1) 08/16/23 16:16 Plt Count 293 10^3/cmm (157-399) 08/16/23 16:16 MPV 9.3 fL (7.4-10.4) 08/16/23 16:16 Neut % (Auto) 66.1 % 08/16/23 16:16 Lymph % (Auto) 18.3 % 08/16/23 16:16 [place] % (Auto) 8.2 % 08/16/23 16:16 Eos % (Auto) 6.4 % 08/16/23 16:16 Baso % (Auto) 0.7 % 08/16/23 16:16 Neut # (Auto) 7.01 10^3/uL (1.8-7.7) 08/16/23 16:16 Lymph # (Auto) 1.9 10^3/uL (0.8-4.8) 08/16/23 16:16 [place] # (Auto) 0.9 10^3/uL (0.2-0.9) 08/16/23 16:16 Eos # (Auto) 0.7 10^3/uL (0.0-0.8) 08/16/23 16:16 Baso # (Auto) 0.1 10^3/uL (0.0-0.1) 08/16/23 16:16 Nucleated RBC % (auto) 0 % 08/16/23 16:16 Nucleated RBCs # 0.0 /100WBC 08/16/23 16:16 All radiology interpretation(s) finalized by discharge Discharge Plan Discharge Condition: Stable Prescriptions: No Action mupirocin 2 % ointment 1 applic topical TID Qty: 22 0RF sulfamethoxazole-trimethoprim [Bactrim DS] 800-160 mg tablet 1 tab PO BID 7 Days Qty: 14 0RF prazosin 1 mg capsule 2 mg PO .q hs 15 Days Qty: 30 0RF Rx Instructions: Take two capsules daily at bedtime duloxetine 30 mg capsule,delayed release(DR/EC) 60 mg PO DAILY 15 Days Qty: 30 0RF Rx Instructions: Take two capsules by mouth every morning albuterol sulfate 90 mcg/actuation HFA aerosol inhaler 2 inh INHALATION Q4H PRN (Reason: shortness of breath or wheezing) Qty: 6.7 0RF Referrals: Sherrie Atwood MD [Primary Care Provider] - Coding Level of Care Code ED Day Trader for Yaryg Christi
--- NOTE | 2023-08-16 16:31 | XRR_ITS ---
PROCEDURE INFORMATION: Exam: XR Left Tibia and Fibula Exam date and time: 08/16/2023 5:13 PM Age: 42 years old Clinical indication: Pain; Lower leg; Left; Additional info: Pain/swelling TECHNIQUE: Imaging protocol: Radiologic exam of the left tibia and fibula. Views: 2 views. COMPARISON: US CV arterial duplex [facility] [id number] 05/29/2021 8:56 PM FINDINGS: Bones/joints: Normal. Soft tissues: Soft tissue edema. XR/XR tibia fibula LT 2V [id number] IMPRESSION: Negative for osseous abnormality.
--- NOTE | 2023-08-16 16:39 | USR_ITS ---
PROCEDURE INFORMATION: Exam: US Duplex Left Lower Extremity Veins, Limited Exam date and time: 08/16/2023 5:24 PM Age: 42 years old Clinical indication: Pain; Leg, lower; Left; Additional info: Pain and swelling TECHNIQUE: Imaging protocol: Real-time duplex ultrasound of the left extremity with 2-D kurtz scale, color Doppler flow and spectral waveform analysis including responses to compression and other maneuvers (when performed) with image documentation. Limited exam focused on the left lower extremity veins. COMPARISON: US CV arterial duplex [facility] [id number] 05/29/2021 8:56 PM FINDINGS: Left deep veins: Unremarkable. The common femoral, femoral, proximal profunda femoral and popliteal veins are patent without thrombus. Normal Doppler waveforms. Normal compressibility and/or augmentation response. Superficial veins: Greater saphenous vein at the saphenofemoral junction is patent without thrombus. Soft tissues: Unremarkable. US/CV venous duplex [facility] [id number] IMPRESSION: No evidence of deep vein thrombosis.
--- NOTE | 2023-08-16 16:39 | USR_ITS ---
PROCEDURE INFORMATION: Exam: US Left Non-Vascular Joint or Other Extremity Structure Exam date and time: 08/16/2023 5:33 PM Age: 42 years old Clinical indication: Pain; Lower leg; Left; Additional info: Left lower extremity anterior tibia? Abscess TECHNIQUE: Imaging protocol: Left US joint or other nonvascular extremity structure or structures. Real-time ultrasound with image documentation. Limited study. Exam focused on the lower extremity in the region of clinical interest. COMPARISON: [place] [id number] 08/16/2023 5:24 PM FINDINGS: Soft tissues: There is focal cutaneous and subcutaneous edema in the left pretibial region. There is no organized fluid collection. US/US soft tissue/extremity [id number] IMPRESSION: Focal subcutaneous edema without organized fluid collection at the area of interest in the pretibial region.
[2023-08-16] MEDS: vancomycin 1,000 MG in sodium chloride 0.9% 250 ML 250 MG IV (17:01)
--- NOTE | 2023-08-16 17:57 | P.HP_ITS ---
Providers/Chief Complaint 2 Primary Care Provider: Sherrie Atwood MD Chief Complaint: left leg pain, red, warm History of Present Illness Joseph Cueva is a 42 year old male with no significant past medical history, recently in long-term for 24 hours presented with complaint of redness and severe pain in the left lower extremity. As per the patient he noticed a small pustule on the left lower leg and tried to puncture it, but had worsening of redness pain and swelling since 4 days. He has been having fever with temperature of 102 at home. Denies any nausea or vomiting cough chest pain or diarrhea. In ER he was found to be tachycardic, in acute distress due to pain. Duplex ultrasound done showed no DVT Localized USG showed a small collection of pus. Review of Systems 2 General: Reports: 10 or more systems reviewed and unremarkable except in HPI and below Medications/Allergies Home Medications Medication Instructions Recorded Confirmed Last Taken Type albuterol sulfate 90 mcg/actuation 2 inh inhalation Q4H PRN shortness 07/18/22 02/06/23 Unknown Rx aerosol inhaler of breath or wheezing #6.7 grams duloxetine 30 mg capsule,delayed 60 mg (2 x 30 mg) PO DAILY 15 days 07/20/22 02/06/23 Unknown Rx release #30 caps prazosin 1 mg capsule 2 mg (2 x 1 mg) PO .q hs 15 days 07/20/22 02/06/23 Unknown Rx #30 caps mupirocin 2 % topical ointment 1 applic topical TID #22 grams 02/06/23 02/06/23 Unknown Rx sulfamethoxazole 800 1 tab PO BID 7 days #14 tabs 02/06/23 02/06/23 Unknown Rx mg-trimethoprim 160 mg tablet (Bactrim DS) Allergies Allergy/AdvReac Type Severity Reaction Status Date / Time Latex, Natural Rubber Allergy Intermediate ALGY-Hives Verified 08/16/23 15:31 PFSH Acute 2 PFSH: Medical History Psychiatric care Bipolar 1 disorder, mixed, moderate Family History Grandmother Diabetes Hypertension Father Hypertension Social History Smoking and tobacco/nicotine status: current some day tobacco/nicotine user Alcohol intake: current Alcohol intake frequency: holidays/special occasions only Substance/Drug Use: former Current gender identity: Male Vitals/I&O/Wt Last Vital Signs Temp 98.0 F 08/16/23 15:26 Pulse 110 H 08/16/23 15:26 Resp 16 08/16/23 15:26 BP 128/84 08/16/23 15:26 Pulse Ox 99 08/16/23 15:26 O2 Del Method Room Air 08/16/23 15:26 Weight last 48 hrs Weight 90.718 kg Physical Exam 2 Narrative: He is alert awake oriented x 3 Chest clear to auscultation bilaterally Cardiovascular normal heart sounds Abdomen NAD Extremity-left lower extremity edema, erythema, warmth and tenderness present. Small 2 x 2 centimeter abscess with black eschar present Right lower extremity normal no edema seen. Data 08/16/23 16:16 A&P Assessment and plan (1) Left leg cellulitis: Plan 42 year old male with no significant past medical history, recently in long-term for 24 hours presented with complaint of swelling redness and severe pain in the left lower extremity, fever and found to have Left lower extremity cellulitis Will continue with IV vancomycin 1 g every 12 IV fluids normal saline at 100 mL/h Leg elevation Pain control with IV tramadol 50 mg every [address]. [address] with contrast to rule out compartment syndrome Regular diet DVT prophylaxis with subcutaneous Lovenox 40 mg daily GI prophylaxis with IV Pepcid 20 mg twice daily He is full code for now Attestations 2 Medical Necessity Statement*: He needs continued hospitalization for more than 2 midnights for IV fluids and antibiotics, pain control for acute left lower leg cellulitis Time Spent in Patient Care: 30 minutes Coding Level of Care Code Acute Code for [facility] Fwd Diagnoses Left leg cellulitis L03.116 Time Spent (min) 30
--- NOTE | 2023-08-16 18:11 | CTR_ITS ---
PROCEDURE INFORMATION: Exam: CT Left Lower Extremity With Contrast; Lower Leg Exam date and time: 08/16/2023 6:43 PM Age: 42 years old Clinical indication: Lower leg; Patient HX: PT has black spot on left payne, redness and warmth spreading up and down leg. Leg is painful up to his hip. Taking tylenol for fever. ; Additional info: Left leg cellulitis, R/O compartment syndrome TECHNIQUE: Imaging protocol: CT of the left lower extremity with intravenous contrast was performed. Exam focused on the lower leg. Radiation optimization: All CT scans at this facility use at least one of these dose optimization techniques: automated exposure control; mA and/or kV adjustment per patient size (includes targeted exams where dose is matched to clinical indication); or iterative reconstruction. Contrast material: OMNI 350; Contrast volume: 100 ml; Contrast route: INTRAVENOUS (IV); COMPARISON: CR XR tibia fibula LT 2V [id number] 08/16/2023 5:13 PM RADIATION DOSE METRICS: Total DLP (mGy-cm): 597.69 FINDINGS: Bones/joints: No evidence of osseous erosion, fracture or subluxation. Soft tissues: Superficial soft tissue edema and skin thickening compatible with cellulitis. No discrete fluid collection to suggest abscess. No soft tissue air. No evidence of deep compartment involvement. CT/CT lower leg LT w con [id number] IMPRESSION: 1. Soft tissue edema/cellulitis without evidence of fluid collection or underlying acute osseous abnormality.
[2023-08-16] MEDS: morphine 4 mg/mL SDV 1 mL IVP (18:24)
[2023-08-16] MEDS: ondansetron 2 mg/ML SDV 2 mL 4 MG IVP (18:24)
[2023-08-16] MEDS: iohexol 350 mg/mL 500 mL Btl (per mL) IV (18:51)
[2023-08-16] MEDS: famotidine 20 mg/2 mL INJ IVP (19:28)
[2023-08-16 19:33] VITALS: BP 128/84; PULSE 110; RESP 16; TEMP 36.7; O2SAT 99
[2023-08-16 19:41] LABS: Alanine Aminotransferase 15 U/L (0-41); Albumin Level 3.5 g/dL (3.5-5.2); Alkaline Phosphatase 72 U/L (40-130); Anion Gap 8.8 (5-19); Aspartate Amino Transferase 13 U/L (0-40); Blood Urea Nitrogen 9 mg/dL (6-20); Calcium 8.3 mg/dL (8.5-10.5); Carbon Dioxide 27 mmol/L (22-29); Chloride 105 mmol/L (98-107); Creatinine Clr Calc Pharmacy 146.2278; Globulin 2.5 g/dL (1.3-4.6); Glomerular Filtration Rate 107.1 mL/min (90-130); Glucose 90 mg/dL (65-115); Lactic Sepsis W/Reflex 0.7 mmol/L (0.5-2.2); Osmolality Calculated 282 mOsm/kg (285-295); Potassium 3.8 mmol/L (3.5-5.1); Sodium 137 mmol/L (136-145); Total Bilirubin 0.3 mg/dL (0.15-1.2)
[2023-08-16 19:46] VITALS: BMI 27.4
[2023-08-16 20:00] VITALS: BP 118/74; PULSE 76; RESP 17; TEMP 36.6; O2SAT 100
[2023-08-16] MEDS: sodium chloride 0.9% 1,000 ML 100 ML IV (20:49)
[2023-08-17] VITALS: BP 110/67; PULSE 81; RESP 18; TEMP 36.4; O2SAT 97
[2023-08-17 04:00] VITALS: BP 107/67; PULSE 77; RESP 18; TEMP 36.9; O2SAT 97
[2023-08-17] MEDS: vancomycin 1,000 MG in sodium chloride 0.9% 250 ML 250 MG IV ×2 (05:27→17:28)
[2023-08-17] MEDS: famotidine 20 mg/2 mL INJ IVP ×2 (05:28→17:27)
[2023-08-17] MEDS: sodium chloride 0.9% 1,000 ML 100 ML IV ×2 (05:29→16:13)
[2023-08-17 06:40] LABS: Basophils % 0.4 %; Eosinophils # 0.6 10^3/uL (0.0-0.8); Eosinophils % 7.9 %; Hematocrit 39.6 % (37-53); Lymphocytes # 2.4 10^3/uL (0.8-4.8); Lymphocytes % 32.1 %; Mean Corpuscular HGB Conc 32.1 g/dL (30-55); Mean Corpuscular Hemoglobin 29.5 pg (27-33); Mean Corpuscular Volume 92.1 fl (82-101); Mean Platelet Volume 9.5 fL (7.4-10.4); Monocytes # 0.8 10^3/uL (0.2-0.9); Monocytes % 11.3 %; Neutrophils # 3.53 10^3/uL (1.8-7.7); Nucleated Red Blood Cells % 0 %; Platelet Count 249 10^3/cmm (157-399); Red Cell Distribution Width 13.2 % (12.1-15.1); White Blood Count 7.35 10^3/uL (3.29-11.43)
[2023-08-17 06:58] LABS: Blood Urea Nitrogen 9 mg/dL (6-20); Calcium 8.2 mg/dL (8.5-10.5); Carbon Dioxide 29 mmol/L (22-29); Chloride 108 mmol/L (98-107); Creatinine Clr Calc Pharmacy 133.1722; Glomerular Filtration Rate 93.5 mL/min (90-130); Glucose 99 mg/dL (65-115); Osmolality Calculated 291 mOsm/kg (285-295); Sodium 141 mmol/L (136-145)
[2023-08-17 07:00] LABS: Anion Gap 8.8 (5-19); Potassium 4.8 mmol/L (3.5-5.1)
[2023-08-17 07:56] VITALS: BP 128/77; PULSE 70; RESP 16; TEMP 36.7; O2SAT 98
[2023-08-17] MEDS: ketorolac 30 mg/mL INJ IVP ×3 (08:15→23:24)
[2023-08-17] MEDS: HYDROcodone-acetaminophen 5-325 mg Tablet 1 TAB PO ×2 (09:18→12:56)
--- NOTE | 2023-08-17 09:34 | PC.CHAP ---
Pastoral Care Encounter/Spiritual Assessment Type of Contact [] Declined operations administrator visit [] Patient/Family/Request visit [] Outpatient visit [] Follow-up visit [] Physician referral [] Code/Alert [] Routine visit [] Staff referral [] Actively dying [] Patient sleeping [] Family support [] [] Out of room [] Palliative care [] [x] Receiving care in room [] Pre-surgical visit [] Trauma [] Long length of stay [] ICU visit [] Other: Relational/Emotional Strength [] Patient feels connected with others/family/visitors/staff [] Distress [] Loneliness/isolation [] Abandonment Spirituality of Patient [] Person of [place] [] Attends Hinduism of their [place] [] Believes in Prayer [] Reads Bible or Adventism materials [] There are Spiritual issues to be addressed Shopper'S Aide Interventions [] Prayer [] Active listening [] Non-anxious presence [] Spiritual/emotional support [] Crisis/trauma care [] Spiritual counseling [] Bereavement support [] Provided bereavement packet [] Provided Bible/devotional materials [] Provided toy/stuffed animal, coloring book to patient or family member [] Provided Communion [] Anointing/[place] [] Salvation [] Completed spiritual assessment [] Other: Impact on Illness or Injury [] Angry [] Fearful [] Anxious [] Often cries [] Exhaustion [] Unable to work [] Unable to attend methodist [] Unable to walk/stand [] Unable to read [] Unable to drive [] Unable to eat/drink [] Unable to sleep [] Unable to be with family [] Patient intubated [] Other: Summary Time spent with patient
[2023-08-17 12:43] VITALS: BP 104/65; PULSE 63; RESP 16; TEMP 36.4; O2SAT 98
--- NOTE | 2023-08-17 13:41 | PM.PN ---
Subjective Subjective: No acute overnight events noted, seen at bedside, his left lower extremity erythema swelling and warmth improved. Denies any new complaints Medications: Reviewed: Yes Vitals/I&O/Wt Last Vital Signs Temp 97.6 F 08/17/23 12:43 Pulse 63 08/17/23 12:43 Resp 16 08/17/23 12:43 BP 104/65 08/17/23 12:43 Pulse Ox 98 08/17/23 12:43 O2 Del Method Room Air 08/16/23 19:46 08/16/23 08/17/23 08/17/23 22:59 06:59 14:59 Intake Total 690 / 690 1225 / 1915 175 / 175 Balance 690 / 690 1225 / 1915 175 / 175 Weight last 48 hrs Weight 95.889 kg Weight 94.347 kg Weight 90.718 kg Physical Exam Narrative: He is alert awake oriented x 3 Chest clear to auscultation bilaterally Cardiovascular normal heart sounds Abdomen NAD Extremity-left lower extremity edema, erythema, warmth and tenderness present but improved as compared to admission.. Small 2 x 2 centimeter abscess with black eschar present Right lower extremity normal no edema seen. Data 08/17/23 06:28 08/17/23 06:28 Micro: Microbiology 08/16/23 19:00 Blood Culture - Preliminary Blood SPECIMEN COLLECTED 08/16/23 19:05 Blood Culture - Preliminary Blood SPECIMEN COLLECTED A&P Assessment and plan (1) Left leg cellulitis: Plan 42 year old male with no significant past medical history, recently in correction for 24 hours presented with complaint of swelling redness and severe pain in the left lower extremity, fever and found to have Left lower extremity cellulitis-improving but Will continue with IV vancomycin 1 g every 12 IV fluids normal saline at 100 mL/h Leg elevation Pain control with po tramadol 50 mg every [address] negative for compartment syndrome Regular diet DVT prophylaxis with subcutaneous Lovenox 40 mg daily GI prophylaxis with IV Pepcid 20 mg twice daily He is full code for now Attestations Medical Necessity Statement*: He needs continued hospitalization for treatment of severe left lower extremity cellulitis with IV fluids and IV antibiotics Time Spent in Patient Care: 15 minutes Coding Level of Care Code Acute Code for [facility] Fwd Diagnoses Left leg cellulitis L03.116 Time Spent (min) 15
[2023-08-17 16:44] VITALS: BP 107/71; PULSE 69; RESP 17; TEMP 36.6; O2SAT 98
[2023-08-17] MEDS: enoxaparin 40 mg/0.4 mL Syringe SUBCUT (17:27)
[2023-08-17 20:00] VITALS: BP 112/71; PULSE 63; RESP 18; TEMP 36.3; O2SAT 100
[2023-08-18] MEDS: sodium chloride 0.9% 1,000 ML 100 ML IV ×2 (01:47→12:42)
--- NOTE | 2023-08-18 03:55 | PC.NURSE ---
around 0300 this nurse was notified that the patient was agitated and wanting to leave AMA. when walking in to talk with the patient he was getting dressed and stated this is F up I am leaving when asking the patient why he was wanting to leave AMA he stated I am tired of getting woke up a million times and the ana beside me dose not deserve this either.... its stupid they are in here at 3am for blood draws he also expressed worries for checking on his house and his dog, he stated he had nobody he could get in contact to check on the animal and it was aggressive twords strangers so the use of a security home check was refused. After talking with the patient and the charge nurse the patient decided to stay as long as we could wait on his blood draws until a later time, his 0400 labs were re timed for 0630 per patient request as well as a plan to change to a private room at shift change. the patient also refused further vitals for the shift. doctor was notified, no new orders at this time.
[2023-08-18] MEDS: famotidine 20 mg/2 mL INJ IVP ×2 (05:59→17:58)
[2023-08-18 06:57] LABS: Basophils % 0.7 %; Eosinophils # 0.6 10^3/uL (0.0-0.8); Eosinophils % 10.3 %; Hematocrit 42.4 % (37-53); Lymphocytes # 1.9 10^3/uL (0.8-4.8); Lymphocytes % 32.4 %; Mean Corpuscular HGB Conc 30.7 g/dL (30-55); Mean Corpuscular Hemoglobin 28.5 pg (27-33); Mean Platelet Volume 9.3 fL (7.4-10.4); Monocytes # 0.5 10^3/uL (0.2-0.9); Monocytes % 8.9 %; Neutrophils # 2.73 10^3/uL (1.8-7.7); Neutrophils % 47.5 %; Nucleated Red Blood Cells % 0 %; Platelet Count 257 10^3/cmm (157-399); Red Blood Count 4.56 10^6/uL (3.85-5.65); White Blood Count 5.74 10^3/uL (3.29-11.43)
[2023-08-18] MEDS: vancomycin 1,000 MG in sodium chloride 0.9% 250 ML 250 MG IV (07:25)
[2023-08-18] MEDS: ketorolac 30 mg/mL INJ IVP ×2 (07:29→16:19)
[2023-08-18 07:54] VITALS: BP 112/70; PULSE 73; RESP 18; TEMP 36.4; O2SAT 98
--- NOTE | 2023-08-18 09:34 | P.PN_ITS ---
Subjective 2 Subjective: No acute overnight events noted. He denies any fever cold cough nausea or vomiting. Feeling better this morning and wants to go home. Explained about the need for IV antibiotics for severe cellulitis, he seems to agree with the plan of care Medications: Reviewed: Yes Vitals/I&O/Wt Last Vital Signs Temp 97.5 F L 08/18/23 07:54 Pulse 73 08/18/23 07:54 Resp 18 08/18/23 07:54 BP 112/70 08/18/23 07:54 Pulse Ox 98 08/18/23 07:54 O2 Del Method Room Air 08/18/23 07:54 08/17/23 08/18/23 08/18/23 22:59 06:59 14:59 Intake Total 1490 / 1665 956.667 / 2621.667 Balance 1490 / 1665 956.667 / 2621.667 Weight last 48 hrs Weight 95.889 kg Weight 94.347 kg Weight 90.718 kg Physical Exam 2 Narrative: He is alert awake oriented x 3 Chest clear to auscultation bilaterally Cardiovascular normal heart sounds Abdomen NAD Extremity-left lower extremity minimal edema, erythema, warmth and tenderness Small 2 x 2 centimeter abscess with black eschar present Right lower extremity normal no edema seen. Data 08/18/23 06:49 08/17/23 06:28 Micro: Microbiology 08/16/23 19:05 Blood Culture - Preliminary Blood NEGATIVE TO DATE 08/16/23 19:00 Blood Culture - Preliminary Blood NEGATIVE TO DATE A&P Assessment and plan (1) Left leg cellulitis: Plan 42 year old male with no significant past medical history, recently in halfway for 24 hours presented with complaint of swelling redness and severe pain in the left lower extremity, fever and found to have Left lower extremity cellulitis-improving but Will continue with IV vancomycin 1 g every 12 IV fluids normal saline at 100 mL/h Leg elevation Pain control with po tramadol 50 mg every 8 hours. Regular diet DVT prophylaxis with subcutaneous Lovenox 40 mg daily GI prophylaxis with IV Pepcid 20 mg twice daily He is full code for now Plan to discharge home in am with oral antibiotics. Attestations 2 Medical Necessity Statement*: He needs continued hospitalization for IV antibiotics and fluids for severe left lower extremity cellulitis. Plan to discharge home tomorrow with oral antibiotics Time Spent in Patient Care: 15 minutes Coding Level of Care Code Acute Code for [facility] Fwd Diagnoses Left leg cellulitis L03.116 Time Spent (min) 15
[2023-08-18 11:54] VITALS: BP 107/71; PULSE 77; RESP 16; O2SAT 95
[2023-08-18] MEDS: vancomycin 1,250 MG/250 ML PIGGYBACK 250 MG IV (19:11)
[2023-08-18 19:59] VITALS: BP 108/68; PULSE 75; RESP 17; TEMP 36.6; O2SAT 99
[2023-08-18] MEDS: HYDROcodone-acetaminophen 5-325 mg Tablet 1 TAB PO (20:48)
[2023-08-19] VITALS: BP 108/66; PULSE 70; RESP 16; TEMP 36.7; O2SAT 95
[2023-08-19] MEDS: famotidine 20 mg/2 mL INJ IVP (05:39)
[2023-08-19 07:26] VITALS: BP 110/71; PULSE 59; RESP 16; TEMP 36.4; O2SAT 97
[2023-08-19 07:33] LABS: Basophils % 0.7 %; Eosinophils # 0.6 10^3/uL (0.0-0.8); Eosinophils % 10.8 %; Lymphocytes % 35.3 %; Mean Corpuscular HGB Conc 31.4 g/dL (30-55); Mean Corpuscular Hemoglobin 29.1 pg (27-33); Mean Corpuscular Volume 92.7 fl (82-101); Mean Platelet Volume 9.5 fL (7.4-10.4); Monocytes # 0.5 10^3/uL (0.2-0.9); Neutrophils # 2.53 10^3/uL (1.8-7.7); Nucleated Red Blood Cells % 0 %; Platelet Count 303 10^3/cmm (157-399); Red Blood Count 4.64 10^6/uL (3.85-5.65); Red Cell Distribution Width 12.8 % (12.1-15.1); White Blood Count 5.75 10^3/uL (3.29-11.43)
--- NOTE | 2023-08-19 07:53 | PC.NURSE ---
Patient Refusal Patient refused fluids, medications, and vital signs last night. Dr. Isidro notified, no new orders at this time.
[2023-08-19] MEDS: vancomycin 1,250 MG/250 ML PIGGYBACK 250 MG IV (08:09)
[2023-08-19] MEDS: ketorolac 30 mg/mL INJ IVP (08:09)
[2023-08-19 11:43] VITALS: BP 122/71; PULSE 76; RESP 17; O2SAT 94
--- NOTE | 2023-08-19 12:09 | PM.DCS ---
Discharge Providers Date of Admission: 08/16/23 18:06 Date of Discharge: August 19, 2023 Attending Provider at Admission: Brenda Thomas MD Attending Provider at Discharge: Brenda Thomas MD Primary Care Provider: Sherrie Atwood MD Diagnoses at Discharge Discharge Diagnosis (1) Left leg cellulitis: Status: Acute Reason for Visit Reason for Visit: left leg pain, red, warm Brief History: 42 year old male with no significant past medical history, recently in group home for 24 hours presented with complaint of redness and severe pain in the left lower extremity. As per the patient he noticed a small pustule on the left lower leg and tried to puncture it, but had worsening of redness pain and swelling since 4 days. He has been having fever with temperature of 102 at home. Denies any nausea or vomiting cough chest pain or diarrhea. In ER he was found to be tachycardic, in acute distress due to pain. Duplex ultrasound done showed no DVT Localized USG showed a small collection of pus. Hospital Course Hospital Course He was found to have severe left lower extremity cellulitis. CT leg done to rule out compartment syndrome. He was started on antibiotics and IV vancomycin 1.2g every 12 hours and IV fluids normal saline at 100 mm/h. His left lower extremity swelling erythema warmth and tenderness improved. His leukocyte count was normal during the hospital stay and he was afebrile. He is doing well and will be discharged home today with oral antibiotics p.o. Bactrim DS 1 tab twice a day for 10 days. Will follow-up with PCP in 1 week. Physical Exam Narrative: He is alert awake oriented x 3 Chest clear to auscultation bilaterally Cardiovascular normal heart sounds Abdomen NAD Extremity-left lower extremity minimal edema, erythema, warmth and tenderness Small 2 x 2 centimeter abscess with black eschar present Right lower extremity normal no edema seen. Discharge Data Studies Completed and Pending Completed Studies During Hospitalization Category Date Time Status CT lower leg LT w con [id number] Stat Cat Scan 08/16/23 18:11 Completed XR tibia fibula LT 2V [id number] Stat Exams 08/16/23 16:31 Completed US soft tissue and or extremity [US soft tissue/ Ultrasound 08/16/23 16:39 Completed extremity [id number]] Stat US venous duplex lower extremity LT [CV venous duplex Ultrasound 08/16/23 16:39 [place] [id number]] Stat Pending at discharge Category Date Time Status Blood Culture Stat Lab 08/16/23 19:00 Results CBC Auto Diff [Complete Blood Count w/Auto] AM LABS Lab 08/20/23 06:30 Ordered Radiology Impressions Tibia/Fibula X-Ray 08/16/23 16:31 IMPRESSION: Negative for osseous abnormality. Soft Tissue Ultrasound 08/16/23 16:39 IMPRESSION: Focal subcutaneous edema without organized fluid collection at the area of interest in the pretibial region. Venous Duplex 08/16/23 16:39 IMPRESSION: No evidence of deep vein thrombosis. Lower Extremity CT 08/16/23 18:11 IMPRESSION: 1. Soft tissue edema/cellulitis without evidence of fluid collection or underlying acute osseous abnormality. Laboratory Results WBC 5.75 10^3/uL (3.29-11.43) 08/19/23 07:03 RBC 4.64 10^6/uL (3.85-5.65) 08/19/23 07:03 Hgb 13.50 g/dL (11.27-16.99) 08/19/23 07:03 Hct 43.0 % (37-53) 08/19/23 07:03 MCV 92.7 fl (82-101) 08/19/23 07:03 MCH 29.1 pg (27-33) 08/19/23 07:03 MCHC 31.4 g/dL (30-55) 08/19/23 07:03 RDW 12.8 % (12.1-15.1) 08/19/23 07:03 Plt Count 303 10^3/cmm (157-399) 08/19/23 07:03 MPV 9.5 fL (7.4-10.4) 08/19/23 07:03 Neut % (Auto) 44.0 % 08/19/23 07:03 Lymph % (Auto) 35.3 % 08/19/23 07:03 [place] % (Auto) 9.0 % 08/19/23 07:03 Eos % (Auto) 10.8 % 08/19/23 07:03 Baso % (Auto) 0.7 % 08/19/23 07:03 Neut # (Auto) 2.53 10^3/uL (1.8-7.7) 08/19/23 07:03 Lymph # (Auto) 2.0 10^3/uL (0.8-4.8) 08/19/23 07:03 [place] # (Auto) 0.5 10^3/uL (0.2-0.9) 08/19/23 07:03 Eos # (Auto) 0.6 10^3/uL (0.0-0.8) 08/19/23 07:03 Baso # (Auto) 0.0 10^3/uL (0.0-0.1) 08/19/23 07:03 Nucleated RBC % (auto) 0 % 08/19/23 07:03 Nucleated RBCs # 0.0 /100WBC 08/19/23 07:03 Sodium 141 mmol/L (136-145) 08/17/23 06:28 Potassium 4.8 mmol/L (3.5-5.1) 08/17/23 06:28 Chloride 108 mmol/L (98-107) H 08/17/23 06:28 Carbon Dioxide 29 mmol/L (22-29) 08/17/23 06:28 Anion Gap 8.8 (5-19) 08/17/23 06:28 BUN 9 mg/dL (6-20) 08/17/23 06:28 Creatinine 0.9 mg/dL (0.7-1.2) 08/17/23 06:28 GFR Calculation 93.5 mL/min (90-130) 08/17/23 06:28 Glucose 99 mg/dL (65-115) 08/17/23 06:28 Calculated Osmolality 291 mOsm/kg (285-295) 08/17/23 06:28 Lactic Acid 0.7 mmol/L (0.5-2.2) 08/16/23 19:00 Calcium 8.2 mg/dL (8.5-10.5) L 08/17/23 06:28 Total Bilirubin 0.3 mg/dL (0.15-1.2) 08/16/23 19:00 AST 13 U/L (0-40) 08/16/23 19:00 ALT 15 U/L (0-41) 08/16/23 19:00 Alkaline Phosphatase 72 U/L (40-130) 08/16/23 19:00 Total Protein 6.0 g/dL (6.6-8.7) L 08/16/23 19:00 Albumin 3.5 g/dL (3.5-5.2) 08/16/23 19:00 Globulin 2.5 g/dL (1.3-4.6) 08/16/23 19:00 Vancomycin Trough 7.0 ug/mL (10-15) L 08/18/23 06:49 Vitals Last Vital Signs Temp 97.6 F 08/19/23 07:26 Pulse 76 08/19/23 11:43 Resp 17 08/19/23 11:43 BP 122/71 08/19/23 11:43 Pulse Ox 94 08/19/23 11:43 O2 Del Method Room Air 08/19/23 11:43 Discharge Plan Discharge Patient Disposition: Home Condition: Stable Prescriptions: Continued mupirocin 2 % ointment 1 applic topical TID Qty: 22 0RF prazosin 1 mg capsule 2 mg PO .q hs 15 Days Qty: 30 0RF Rx Instructions: Take two capsules daily at bedtime duloxetine 30 mg capsule,delayed release(DR/EC) 60 mg PO DAILY 15 Days Qty: 30 0RF Rx Instructions: Take two capsules by mouth every morning albuterol sulfate 90 mcg/actuation HFA aerosol inhaler 2 inh INHALATION Q4H PRN (Reason: shortness of breath or wheezing) Qty: 6.7 0RF sulfamethoxazole-trimethoprim [Bactrim DS] 800-160 mg tablet 1 tab PO BID 10 Days Qty: 20 0RF Referrals: Sherrie Atwood MD [Primary Care Provider] - 1 week (We have notified your physician's clinic of the need for a follow-up appointment to be scheduled. If you have not heard from them within the next 2 business days, please call them directly. ) Discharge Diet: Regular Patient Instructions: Opioid Safety Activity Restrictions/Additional Instructions: follow up PCP in 1 week Discharge Attestations Time Spent in Discharge Care*: less than 30 min Quality Metrics Clinical Quality Measures [ No reported AMI, CVA or VTE this stay] Coding Level of Care Code Acute Code for [facility] Fwd Diagnoses Left leg cellulitis L03.116 Time Spent (min) 15
--- NOTE | 2023-08-19 13:32 | PC.NURSE ---
LENA Burk discussed discharge with patient and removed IV. Had patient sign discharge. Patient and friend stated they would ambulate out.
[2023-08-19 13:34] VITALS: BP 122/71; PULSE 76; RESP 17; O2SAT 94
== END 2023-08-19 13:00 | disposition home or self-care (01) | DRG 603 ==
LOC: ER 17:44 → MEDSURG 19:34
PROVIDERS: Emergency Medicine; Student in an Organized Health Care Education/Training Program; Admitting Provider Internal Medicine; Emergency Provider Family Medicine; PCP Family Medicine; Visit Provider Internal Medicine
DX: L03.116 Cellulitis of left lower limb (principal)
CPT/HCPCS: 36415; 73590; 73701; 76882; 80048; 80053; 80202; 83605; 85025; 87040; 93971; 96372; J1650; J1885; J2270; J2405; J3370; J3490; J7030; J7050; Q9967

== ENCOUNTER 2024-03-11 10:04 | Inpatient (IN) | payer MEDICAID, SELFPAY ==
[2024-03-11 10:05] VITALS: BP 128/85; PULSE 113; RESP 18; TEMP 36.8; O2SAT 97
--- NOTE | 2024-03-11 10:25 | W.ED.PSYCHS ---
Documented by User: ALEX Mitchell 03/11/24 10:36 HPI - Psych General: Chief Complaint: Psychiatric Symptoms Stated Complaint: MHE Time Seen by Provider: 03/11/24 10:08 Source: patient and police Mode of arrival: other (police) Limitations: altered mental status (psychosis) History of Present Illness: Patient is a 43-year-old male presents to ED today after he was brought by police with an affidavit on his chart for mental health evaluation. Police state they got called to patient's residence stating that he had an individual hiding in his attic and that he was being held at gun point. Patient tells me a very elaborate story over the past 8 months where he has felt somebody has been hiding and coming in and out of his house. He states they have been leaving signs that they have been there such as empty beer cans, tic-tac-toe boards on his closet aguilar, holes in the aguilar, etc. He goes on to tell me of an elaborate plot involving Ronn who is a well known local drug dealer who has a plan to kill him all over SD cards that have incriminating evidence of female victims he has murdered. He speaks of a girl named Samantha Hoff that is involved in this plot somehow. Apparently police have been called to his residence numerous times without any evidence of intruders to his home. Patient does admit to dabbling in drug use. MD complaint: altered mental status Duration: constant Relieving factors: none Exacerbating factors: drug use Associated psychiatric symptoms: visual hallucinations and delusions Associated symptoms: Reports visual hallucinations and delusions; Deny homicidal ideation or suicidal ideation Treatments prior to arrival: other (police filed affidavit) Related Data Home Medications Medication Instructions Recorded Confirmed No Known Home Medications 03/11/24 03/11/24 Allergies Allergy/AdvReac Type Severity Reaction Status Date / Time Latex, Natural Rubber Allergy Intermediate ALGY-Hives Verified 08/16/23 15:31 Review of Systems Psych: Reports: paranoia and visual hallucinations; Denies: suicidal ideation or homicidal ideation [facility] ED PFSH: Medical History Bipolar 1 disorder, mixed, moderate Family History Grandmother Diabetes Hypertension Father Hypertension Social History Smoking and tobacco/nicotine status: current some day tobacco/nicotine user Alcohol intake: current Alcohol intake frequency: holidays/special occasions only Substance/Drug Use: former Current gender identity: Male Physical Exam Const: COMMON NORMALS: no acute distress, average body habitus, patient oriented x3, healthy appearing, alert and well nourished EXAM LIMITATIONS: altered mental status (psychosis) GENERAL APPEARANCE: cooperative and well kempt Resp: COMMON NORMALS: normal respiratory effort and clear to auscultation bilaterally AUSCULTATION: clear to auscultation bilaterally Cardio: COMMON NORMALS: regular rate and regular rhythm RATE: regular rate RHYTHM: regular rhythm Neuro: COMMON NORMALS: patient oriented x3 SENSORIUM/ORIENTATION: Yes alert Psych: COMMON NORMALS: mental status grossly normal, Normal thought process present, cooperative, normal affect, speech normal, activity/motor behavior normal, denies homicidal ideation and denies suicidal ideation APPEARANCE: Yes grossly normal and Yes well kempt ATTITUDE: Yes engaged ACTIVITY/MOTOR BEHAVIOR: Yes appropriate eye contact and No psychomotor agitation SPEECH: Yes normal speech THOUGHT PROCESS: Normal thought process present THOUGHT CONTENT: Yes delusions and Yes Hallucination(s) present ATTENTION/CONCENTRATION: Yes attention grossly intact and Yes concentration grossly intact MEMORY/COGNITION: Yes memory grossly intact INSIGHT: Limited insight present (Psych) JUDGEMENT: Limited judgement present (Psych) Course Consultations: Consultation #1: Dr. Licea-accepts to NPU Vital Signs: Vital signs: Vital Signs Temperature 97.6 F 03/11/24 20:41 Pulse Rate 87 03/11/24 20:41 Respiratory Rate 18 03/11/24 20:41 Blood Pressure 116/74 03/11/24 20:41 Pulse Oximetry 97 03/11/24 20:41 Oxygen Delivery Me thod Room Air 03/11/24 20:41 MDM - Psych Medical Decision Making Patient will be an admit to NPU on a 96-hour hold to Dr. Licea for treatment/evaluation of psychosis. Lab Data 03/11/24 10:31 03/11/24 10:31 Laboratory Results WBC 12.16 10^3/uL (3.29-11.43) H 03/11/24 10:31 RBC 5.35 10^6/uL (3.85-5.65) 03/11/24 10:31 Hgb 15.40 g/dL (11.27-16.99) 03/11/24 10:31 Hct 47.9 % (37-53) 03/11/24 10:31 MCV 89.5 fl (82-101) 03/11/24 10:31 MCH 28.8 pg (27-33) 03/11/24 10:31 MCHC 32.2 g/dL (30-55) 03/11/24 10:31 RDW 13.2 % (12.1-15.1) 03/11/24 10:31 Plt Count 323 10^3/cmm (157-399) 03/11/24 10:31 MPV 9.2 fL (7.4-10.4) 03/11/24 10:31 Neut % (Auto) 80.1 % 03/11/24 10:31 Lymph % (Auto) 10.8 % 03/11/24 10:31 [place] % (Auto) 6.3 % 03/11/24 10:31 Eos % (Auto) 2.1 % 03/11/24 10:31 Baso % (Auto) 0.4 % 03/11/24 10:31 Neut # (Auto) 9.75 10^3/uL (1.8-7.7) H 03/11/24 10:31 Lymph # (Auto) 1.3 10^3/uL (0.8-4.8) 03/11/24 10:31 [place] # (Auto) 0.8 10^3/uL (0.2-0.9) 03/11/24 10:31 Eos # (Auto) 0.3 10^3/uL (0.0-0.8) 03/11/24 10:31 Baso # (Auto) 0.1 10^3/uL (0.0-0.1) 03/11/24 10:31 Nucleated RBC % (auto) 0 % 03/11/24 10:31 Nucleated RBCs # 0.0 /100WBC 03/11/24 10:31 Sodium 139 mmol/L (136-145) 03/11/24 10:31 Potassium 4.0 mmol/L (3.5-5.1) 03/11/24 10:31 Chloride 100 mmol/L (98-107) 03/11/24 10:31 Carbon Dioxide 28 mmol/L (22-29) 03/11/24 10:31 Anion Gap 15.0 (5-19) 03/11/24 10:31 BUN 12 mg/dL (6-20) 03/11/24 10:31 Creatinine 0.9 mg/dL (0.7-1.2) 03/11/24 10:31 GFR Calculation 93.0 mL/min (90-130) 03/11/24 10:31 Glucose 98 mg/dL (65-115) 03/11/24 10:31 Calculated Osmolality 288 mOsm/kg (285-295) 03/11/24 10:31 Calcium 9.3 mg/dL (8.5-10.5) 03/11/24 10:31 Total Bilirubin 0.3 mg/dL (0.15-1.2) 03/11/24 10:31 AST 18 U/L (0-40) 03/11/24 10:31 ALT 20 U/L (0-41) 03/11/24 10:31 Alkaline Phosphatase 83 U/L (40-130) 03/11/24 10:31 Total Protein 7.3 g/dL (6.6-8.7) 03/11/24 10:31 Albumin 4.8 g/dL (3.5-5.2) 03/11/24 10:31 Globulin 2.5 g/dL (1.3-4.6) 03/11/24 10:31 TSH 2.26 uIU/mL (0.27-4.20) 03/11/24 10:31 Salicylates < 0.3 mg/dL (3-10) L 03/11/24 10:31 Urine Opiates Screen Negative ng/mL (Negative) 03/11/24 11:10 Acetaminophen < 5.0 ug/mL (10-30) L 03/11/24 10:31 Ur Barbiturates Screen Negative ng/mL (Negative) 03/11/24 11:10 Ur Phencyclidine Scrn Negative ng/mL (Negative) 03/11/24 11:10 Ur Amphetamines Screen Positive ng/mL (Negative) H 03/11/24 11:10 U Benzodiazepines Scrn Negative ng/mL (Negative) 03/11/24 11:10 Urine Cocaine Screen Negative ng/mL (Negative) 03/11/24 11:10 U Marijuana (THC) Screen Positive ng/mL (Negative) H 03/11/24 11:10 Ethyl Alcohol < 10 mg/dL (0-10) 03/11/24 10:31 No radiology studies performed this visit Discharge Plan Discharge Patient Disposition: Admitted As Inpatient Admit Provider: Davonte Licea Clinical Impression: Acute psychosis Condition: Stable Coding Level of Care Code ED Integrity Specialist for [facility]g Fwd Documented by User: Leon Urbina DO 03/12/24 06:32 HPI - Psych General: Chief Complaint: Psychiatric Symptoms Stated Complaint: MHE Time Seen by Provider: 03/11/24 10:08 Related Data Home Medications Medication Instructions Recorded Confirmed No Known Home Medications 03/11/24 03/11/24 Allergies Allergy/AdvReac Type Severity Reaction Status Date / Time Latex, Natural Rubber Allergy Intermediate ALGY-Hives Verified 08/16/23 15:31 PFSH ED PFSH: Medical History Bipolar 1 disorder, mixed, moderate Family History Grandmother Diabetes Hypertension Father Hypertension Social History Smoking and tobacco/nicotine status: current some day tobacco/nicotine user Alcohol intake: current Alcohol intake frequency: holidays/special occasions only Substance/Drug Use: former Current gender identity: Male Course Vital Signs: Vital signs: Vital Signs Temperature 97.6 F 03/11/24 20:41 Pulse Rate 87 03/11/24 20:41 Respiratory Rate 18 03/11/24 20:41 Blood Pressure 116/74 03/11/24 20:41 Pulse Oximetry 97 03/11/24 20:41 Oxygen Delivery Me thod Room Air 03/11/24 20:41 MDM - Psych Medical Decision Making Patient will be an admit to NPU on a 96-hour hold to Dr. Licea for treatment/evaluation of psychosis. Chart reviewed and patient discussed with midlevel. Agree with assessment and plan. Lab Data 03/11/24 10:31 03/11/24 10:31 Laboratory Results WBC 12.16 10^3/uL (3.29-11.43) H 03/11/24 10:31 RBC 5.35 10^6/uL (3.85-5.65) 03/11/24 10:31 Hgb 15.40 g/dL (11.27-16.99) 03/11/24 10:31 Hct 47.9 % (37-53) 03/11/24 10:31 MCV 89.5 fl (82-101) 03/11/24 10:31 MCH 28.8 pg (27-33) 03/11/24 10:31 MCHC 32.2 g/dL (30-55) 03/11/24 10:31 RDW 13.2 % (12.1-15.1) 03/11/24 10:31 Plt Count 323 10^3/cmm (157-399) 03/11/24 10:31 MPV 9.2 fL (7.4-10.4) 03/11/24 10:31 Neut % (Auto) 80.1 % 03/11/24 10:31 Lymph % (Auto) 10.8 % 03/11/24 10:31 [place] % (Auto) 6.3 % 03/11/24 10:31 Eos % (Auto) 2.1 % 03/11/24 10:31 Baso % (Auto) 0.4 % 03/11/24 10:31 Neut # (Auto) 9.75 10^3/uL (1.8-7.7) H 03/11/24 10:31 Lymph # (Auto) 1.3 10^3/uL (0.8-4.8) 03/11/24 10:31 [place] # (Auto) 0.8 10^3/uL (0.2-0.9) 03/11/24 10:31 Eos # (Auto) 0.3 10^3/uL (0.0-0.8) 03/11/24 10:31 Baso # (Auto) 0.1 10^3/uL (0.0-0.1) 03/11/24 10:31 Nucleated RBC % (auto) 0 % 03/11/24 10:31 Nucleated RBCs # 0.0 /100WBC 03/11/24 10:31 Sodium 139 mmol/L (136-145) 03/11/24 10:31 Potassium 4.0 mmol/L (3.5-5.1) 03/11/24 10:31 Chloride 100 mmol/L (98-107) 03/11/24 10:31 Carbon Dioxide 28 mmol/L (22-29) 03/11/24 10:31 Anion Gap 15.0 (5-19) 03/11/24 10:31 BUN 12 mg/dL (6-20) 03/11/24 10:31 Creatinine 0.9 mg/dL (0.7-1.2) 03/11/24 10:31 GFR Calculation 93.0 mL/min (90-130) 03/11/24 10:31 Glucose 98 mg/dL (65-115) 03/11/24 10:31 Calculated Osmolality 288 mOsm/kg (285-295) 03/11/24 10:31 Calcium 9.3 mg/dL (8.5-10.5) 03/11/24 10:31 Total Bilirubin 0.3 mg/dL (0.15-1.2) 03/11/24 10:31 AST 18 U/L (0-40) 03/11/24 10:31 ALT 20 U/L (0-41) 03/11/24 10:31 Alkaline Phosphatase 83 U/L (40-130) 03/11/24 10:31 Total Protein 7.3 g/dL (6.6-8.7) 03/11/24 10:31 Albumin 4.8 g/dL (3.5-5.2) 03/11/24 10:31 Globulin 2.5 g/dL (1.3-4.6) 03/11/24 10:31 TSH 2.26 uIU/mL (0.27-4.20) 03/11/24 10:31 Salicylates < 0.3 mg/dL (3-10) L 03/11/24 10:31 Urine Opiates Screen Negative ng/mL (Negative) 03/11/24 11:10 Acetaminophen < 5.0 ug/mL (10-30) L 03/11/24 10:31 Ur Barbiturates Screen Negative ng/mL (Negative) 03/11/24 11:10 Ur Phencyclidine Scrn Negative ng/mL (Negative) 03/11/24 11:10 Ur Amphetamines Screen Positive ng/mL (Negative) H 03/11/24 11:10 U Benzodiazepines Scrn Negative ng/mL (Negative) 03/11/24 11:10 Urine Cocaine Screen Negative ng/mL (Negative) 03/11/24 11:10 U Marijuana (THC) Screen Positive ng/mL (Negative) H 03/11/24 11:10 Ethyl Alcohol < 10 mg/dL (0-10) 03/11/24 10:31 Discharge Plan Discharge Patient Disposition: Admitted As Inpatient Admit Provider: Davonte Licea Clinical Impression: Acute psychosis Condition: Stable Coding Level of Care Code ED Integrity Specialist for Alejandro Barraza
[2024-03-11 10:39] LABS: Basophils # 0.1 10^3/uL (0.0-0.1); Basophils % 0.4 %; Eosinophils # 0.3 10^3/uL (0.0-0.8); Eosinophils % 2.1 %; Hematocrit 47.9 % (37-53); Lymphocytes # 1.3 10^3/uL (0.8-4.8); Lymphocytes % 10.8 %; Mean Corpuscular HGB Conc 32.2 g/dL (30-55); Mean Corpuscular Hemoglobin 28.8 pg (27-33); Mean Corpuscular Volume 89.5 fl (82-101); Mean Platelet Volume 9.2 fL (7.4-10.4); Monocytes # 0.8 10^3/uL (0.2-0.9); Monocytes % 6.3 %; Neutrophils # 9.75 10^3/uL (1.8-7.7); Neutrophils % 80.1 %; Nucleated Red Blood Cells % 0 %; Platelet Count 323 10^3/cmm (157-399); Red Blood Count 5.35 10^6/uL (3.85-5.65); Red Cell Distribution Width 13.2 % (12.1-15.1); White Blood Count 12.16 10^3/uL (3.29-11.43)
--- NOTE | 2024-03-11 10:39 | PC.PHAR ---
patient states no meds and no primary pharmacy
[2024-03-11 11:01] LABS: Acetaminophen < 5.0 ug/mL (10-30); Alanine Aminotransferase 20 U/L (0-41); Albumin Level 4.8 g/dL (3.5-5.2); Alcohol Level < 10 mg/dL (0-10); Alkaline Phosphatase 83 U/L (40-130); Aspartate Amino Transferase 18 U/L (0-40); Blood Urea Nitrogen 12 mg/dL (6-20); Calcium 9.3 mg/dL (8.5-10.5); Carbon Dioxide 28 mmol/L (22-29); Chloride 100 mmol/L (98-107); Globulin 2.5 g/dL (1.3-4.6); Glucose 98 mg/dL (65-115); Osmolality Calculated 288 mOsm/kg (285-295); Salicylate < 0.3 mg/dL (3-10); Sodium 139 mmol/L (136-145); Total Bilirubin 0.3 mg/dL (0.15-1.2); Total Protein 7.3 g/dL (6.6-8.7)
[2024-03-11 11:11] LABS: Thyroid Stimulating Hormone 2.26 uIU/mL (0.27-4.20)
[2024-03-11 11:16] VITALS: RESP 18; O2SAT 98
--- NOTE | 2024-03-11 11:41 | PC.NURSE ---
96 hr rights reviewed with patient @1125. All education reviewed. No verbalized questions or concerns at this time. Patient copy left with patient. No further needs.
[2024-03-11 11:55] LABS: Amphetamines Screen Urine Positive (Negative); Barbiturates Screen Urine Negative (Negative); Benzodiazepines Screen Urine Negative (Negative); Cocaine Screen Urine Negative (Negative); Opiate Screen Urine Negative (Negative); PCP Screen Urine Negative (Negative); THC Screen Urine Positive (Negative)
--- NOTE | 2024-03-11 13:46 | PC.NURSE ---
pt refused ativan at this time, charge nurse notified and aware.
[2024-03-11 14:33] VITALS: RESP 18
[2024-03-11 14:42] VITALS: BP 115/70; PULSE 56; RESP 18; TEMP 36.6; O2SAT 96
[2024-03-11] MEDS: OLANZapine 5 mg ODT PO (15:21)
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
[2024-03-11 20:41] VITALS: BP 116/74; PULSE 87; RESP 18; TEMP 36.4; O2SAT 97
[2024-03-12 06:00] VITALS: BP 116/77; PULSE 78; RESP 18; TEMP 36.4; O2SAT 98
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
--- NOTE | 2024-03-12 08:54 | PC.NURSE ---
Pt refused AM assessment and breakfast stating I am not in the mood and will not be doing nothing, plus I better be released before lunch. Pt laid back down in bed, rr even and unlabored.
[2024-03-12 14:00] VITALS: RESP 16
--- NOTE | 2024-03-12 14:22 | PC.NURSE ---
PT REFUSED 1400 VITALS FOR THIS TEST ENG. PT STATED I WOULD RATHER NOT BE BOTHERED RIGHT NOW, I AM FINE . CHARGE NURSE NOTIFIED. RESPIRATIONS WERE OBTAINED AT 16.
[2024-03-12 20:48] VITALS: BP 109/68; PULSE 84; RESP 18; TEMP 36.6; O2SAT 98
[2024-03-12] MEDS: OLANZapine 5 mg ODT PO (21:07)
[2024-03-12] MEDS: trazodone 50 mg Tablet PO (21:07)
[2024-03-13 06:00] VITALS: BP 105/68; PULSE 70; RESP 18; TEMP 36.7; O2SAT 98
[2024-03-13] MEDS: acetaminophen 325 mg Tablet 650 MG PO ×2 (06:28→19:43)
[2024-03-13 14:00] VITALS: RESP 17
--- NOTE | 2024-03-13 15:12 | PC.NURSE ---
Pt refused vital signs this afternoon. Pt stated that we had taken them enough.
--- NOTE | 2024-03-13 18:54 | P.NPUPN_ITS ---
Subjective NPU 2 Subjective: Patient presented today reporting that he is doing okay. We discussed the fact that his experiences at home are absolutely almost probably secondary to his methamphetamine use. He was somewhat more full throated in his acknowledgment of the role his relapse played in his paranoia. We agreed we would restart his medication with the least his Cymbalta and prazosin restarting after discussion of the risks, benefits and alternatives he understood and agreed to proceed as is documented in this note. We also identified that at 1 point he had been on Tegretol and discussed the possibility of restarting that as well prior to discharge. We discussed the likelihood of discharge in the next 48 hours with the probability of discharging tomorrow. Mental Status Exam 2 MSE Comments: This is a well-nourished well-developed white male in hospital scrubs with adequate grooming and eye contact. No abnormal movements except for mild psychomotor agitation. Cooperative with exam and mild distress. Speech was mostly normal rate and decreased volume. Mood described as better today, affect slightly irritable. Thought process organized. Thought content: Patient denied suicidal or homicidal ideation, there were no delusions reported or noted, he denied any auditory visual hallucinations. The patient reported auditory hallucinations following his recent drug use. He also reported high levels of stress and a relapse into drug use. He denied any current suicidal ideation or thoughts of violence. Attention and concentration were intact and memory appeared unreliable but no more formally tested. He is alert and oriented x 3. Insight and judgment limited impulse control impaired. 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 The patient is experiencing a period of increased psychological stress and has recently relapsed into substance abuse, leading to auditory hallucinations. He has a history of bipolar disorder and anxiety, for which he has previously been medicated. He is currently not undergoing psychotherapy or pharmacotherapy for these conditions. 1. Restart Cymbalta 30 mg p.o. daily and prazosin 1 mg p.o. nightly. Will consider starting Tegretol prior to discharge. 2. Encourage individual, group and milieu therapy 3. Continue q-15 minute check for safety 4. Recommend sober living treatment at the highest level of care to which the patient is willing to commit. 5. Obtain collateral information. 6. Evaluate for safety against the backdrop of the 96-hour hold. Involuntary Hold Information 2 96 Hour Hold: 96 Hour Hold Ending Date: 03/17/24 96 Hour Hold Ending Time: 10:41 Other Hold: Hold End Date: 03/17/24 Attestations NPU 2 Medical Necessity Statement*: Inpatient hospitalization is medically necessary and the clinically appropriate intervention at this time. We will monitor/initiate medications and make changes as indicated. Likely length of stay is 1-2 days. 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
[2024-03-13 19:45] VITALS: BP 98/58; PULSE 86; RESP 18; TEMP 36.4; O2SAT 96
[2024-03-13] MEDS: duloxetine 20 mg Capsule PO (19:47)
[2024-03-13] MEDS: trazodone 50 mg Tablet PO (21:13)
[2024-03-13] MEDS: prazosin 1 mg Capsule PO (21:13)
[2024-03-14 06:00] VITALS: RESP 16
--- NOTE | 2024-03-14 06:14 | PC.NURSE ---
when pt was asked about me taking his vitals he told me NO nurse aware resp charted and are at 16
--- NOTE | 2024-03-14 09:18 | PC.NURSE ---
SITTING IN BED, DENIES PAIN. DENIES SI/HI AND AVH AT THIS TIME. RATES ANXIETY AND DEPRESSION 07/07. AFFECT IS FLAT. PT STATES HE IS READY TO LEAVE TODAY, I'M LEAVING TODAY SO I'M READY LETS GO. PT EDUCATED THAT AFTER THE MORNING MEETING I WOULD LET HIM KNOW WHEN HE WILL BE DISCHARGING IF THATS WHAT DR. LEMONS DECIDES. SUPPORT VOICED.
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
[2024-03-14 14:00] VITALS: BP 118/73; PULSE 90; RESP 18; TEMP 36.9; O2SAT 98
[2024-03-14 14:22] VITALS: BP 118/73; PULSE 90; RESP 18; TEMP 36.9; O2SAT 98
[2024-03-14] MEDS: duloxetine 30 mg Capsule PO (14:27)
== END 2024-03-14 16:26 | disposition home or self-care (01) | DRG 897 ==
LOC: ER 10:39 → NP 14:30
PROVIDERS: Admitting Provider Psychiatry & Neurology Psychiatry; Emergency Provider Physician Assistant; PCP Family Medicine; Visit Provider Psychiatry & Neurology Psychiatry
DX: F15.959 Other stimulant use, unspecified with stimulant-induced psychotic disorder, unspecified (principal); F33.2 Major depressive disorder, recurrent severe without psychotic features; F43.10 Post-traumatic stress disorder, unspecified; F39 Unspecified mood [affective] disorder; F60.3 Borderline personality disorder; F17.210 Nicotine dependence, cigarettes, uncomplicated; S09.90XS Unspecified injury of head, sequela; X58.XXXS Exposure to other specified factors, sequela
CPT/HCPCS: 36415; 80053; 80306; 80307; 84443; 85025; 97165; 99285

== ENCOUNTER 2024-05-19 11:18 | Emergency (ER) | payer MEDICAID, SELFPAY ==
[2024-05-19 11:22] VITALS: BP 135/87; PULSE 93; TEMP 36.9; O2SAT 100; BMI 25.7
--- NOTE | 2024-05-19 11:57 | ED_ITS ---
HPI - COVID General: Chief Complaint: COVID symptoms Stated Complaint: tested + covid Time Seen by Provider: 05/19/24 11:33 Source: patient Mode of arrival: ambulatory Limitations: no limitations Triage information: Has fever, cough or shortness of breath . No known COVID + exposure last 14 days History of Present Illness: Patient is a 43-year-old male who presents to ED today with a complaint of nasal congestion, rhinorrhea, headache, diarrhea, fevers, body aches. He states symptoms of present over the past 3 to 4 days. He states he took a home antigen test this morning and it was positive for COVID. MD complaint: known COVID positive Prior covid testing: yes, results known COVID 19 common symptoms: positive fever(s), chills, fatigue, body aches, headache(s), nasal congestion and diarrhea; negative non-productive cough, dyspnea or throat pain COVID 19 other sytmptoms: negative chest pain or dizziness Onset (ago): day(s) Severity: moderate Treatment prior to arrival: none COVID Results: SARS-CoV-2 (PCR) Not detected (NOT DETECT) 07/18/22 16:20 Coronavirus Type 229E (PCR) Not detected (NOT DETECT) 07/18/22 16:20 Related Data Previous Rx's Medication Instructions Recorded duloxetine 30 mg capsule,delayed 30 mg PO DAILY 30 days #30 caps 03/14/24 release prazosin 1 mg capsule 1 mg PO BEDTIME 30 days #30 caps 03/14/24 trazodone 50 mg tablet 50 mg PO BEDTIME PRN Sleep 30 days 03/14/24 #30 tabs Allergies Allergy/AdvReac Type Severity Reaction Status Date / Time Latex, Natural Rubber Allergy Intermediate ALGY-Hives Verified 05/19/24 11:28 Review of Systems Const: Reports: fever(s), chills, body aches and fatigue; Denies: change in appetite ENMT: Reports: ear or mastoid pain and nasal congestion; Denies: throat pain or odynophagia Card: Denies: chest pain Resp: Reports: chest congestion; Denies: dyspnea or non-productive cough GI: Reports: diarrhea; Denies: abdominal pain, hematochezia or melena Musc: Reports: other (generalized body aches); Denies: neck pain, back pain, extremity pain, joint pain or joint swelling Neuro: Reports: headache(s); Denies: numbness in extremities, weakness in extremities, sensory changes or dizziness PFSH ED PFSH: Medical History Bipolar 1 disorder, mixed, moderate Family History Grandmother Diabetes Hypertension Father Hypertension Social History Smoking and tobacco/nicotine status: current some day tobacco/nicotine user Alcohol intake: current Alcohol intake frequency: holidays/special occasions only Substance/Drug Use: former Current gender identity: Male Physical Exam Const: COMMON NORMALS: no acute distress, average body habitus, patient oriented x3, no limitations, healthy appearing, alert and well nourished HENMT: FACE & SINUS: normal facial exam THROAT: posterior oropharynx normal Eye: COMMON NORMALS: no scleral icterus Neck/C-Spine: COMMON NORMALS: no lymphadenopathy Resp: COMMON NORMALS: normal respiratory effort and clear to auscultation bilaterally AUSCULTATION: clear to auscultation bilaterally Cardio: COMMON NORMALS: regular rate and regular rhythm RATE: regular rate RHYTHM: regular rhythm Neuro: COMMON NORMALS: patient oriented x3 SENSORIUM/ORIENTATION: Yes alert Course Vital Signs: Vital signs: Vital Signs Temperature 98.4 F 05/19/24 11:22 Pulse Rate 93 05/19/24 11:22 Blood Pressure 135/87 05/19/24 11:22 Pulse Oximetry 100 05/19/24 11:22 Oxygen Delivery Me thod Room Air 05/19/24 11:22 MDM - COVID Medical Decision Making Patient here for signs and symptoms of COVID and testing positive for COVID earlier today via home antigen testing. He arrives clinically in no acute distress with stable vital signs. There is nothing further that needs to be done from an emergency standpoint. He is otherwise healthy. He is outside the window of Paxlovid. Discussed continued conservative therapies and quarantining precautions. Return to ED precautions discussed. Differential Diagnosis Likely COVID 19, influenza and other viral infection Medical Records I reviewed the patient's medical records. Lab Data SARS-CoV-2 (PCR) Not detected (NOT DETECT) 07/18/22 16:20 Coronavirus Type 229E (PCR) Not detected (NOT DETECT) 07/18/22 16:20 No radiology studies performed this visit Discharge Plan Discharge Patient Disposition: Home Clinical Impression: COVID Condition: Stable Prescriptions: No Action trazodone 50 mg Tablet 50 mg PO BEDTIME PRN (Reason: Sleep) 30 Days Qty: 30 1RF prazosin 1 mg Capsule 1 mg PO BEDTIME 30 Days Qty: 30 1RF duloxetine 30 mg Capsule,Delayed Release(Dr/Ec) 30 mg PO DAILY 30 Days Qty: 30 1RF Discharge Orders: Discharge ED (Routine); Ordered 05/19/24 Ordered By: Iman Carrillo Referrals: Sherrie Atwood MD [Primary Care Provider] - Patient Instructions: COVID-19 (Coronavirus Disease 2019) (ED) Activity Restrictions/Additional Instructions: As we discussed, treatment for COVID at this time is going to be conservative therapy. Continue pushing hydration, resting, and continuing Tylenol/Ibuprofen as needed for fevers and body aches. Coding Level of Care Code ED Senior Benefits Analyst for Alejandro Barraza
[2024-05-19 12:16] VITALS: O2SAT 98
[2024-05-19 12:23] VITALS: BP 122/83; PULSE 94; O2SAT 98
== END 2024-05-19 12:23 | disposition home or self-care (01) ==
PROVIDERS: Emergency Provider Physician Assistant; PCP Family Medicine
DX: U07.1 COVID-19 (principal); Z72.0 Tobacco use; Z11.52 Encounter for screening for COVID-19
CPT/HCPCS: 99281

== ENCOUNTER 2024-05-28 19:51 | Inpatient (IN) | payer MEDICAID, SELFPAY ==
[2024-05-28 19:53] VITALS: BP 103/73; PULSE 109; RESP 18; TEMP 37.2; O2SAT 96; BMI 26.4
--- NOTE | 2024-05-28 19:55 | ECG_ITS ---
[facility] Test Date: 2024-05-28 Pat Name: Joseph Cueva Department: Room: Gender: Male Continuous Process Tanner Rotary Drum: : 1980 Requested By: Coral Alonso Order Number: [id number] Gutierrez MD: Live Short M.D. Measurements Intervals Roundup Rate: 90 P: 49 NV: 151 QRS: 50 QRSD: 111 T: 67 QT: 364 QTc: 447 Interpretive Statements SINUS RHYTHM MODERATE INTRAVENTRICULAR CONDUCTION DELAY [110+ ms QRS DURATION] Compared to ECG 06/12/2018 12:34:31 Atrial fibrillation no longer present Electronically Signed On 05-29-2024 10:34:38 AIR CARGO SPECIALIST SUPERVISOR by Live Short M.D. [email or web address]
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
--- NOTE | 2024-05-28 20:38 | PC.NURSE ---
96 Hour Involuntary Hold Patient Rights have been reviewed with the patient and a copy of the same has been provided to him. Security Officers Martell & Erick were at bedside at the time of presentation of Rights.
[2024-05-28 20:54] LABS: Basophils # 0.1 10^3/uL (0.0-0.1); Basophils % 0.8 %; Eosinophils # 0.7 10^3/uL (0.0-0.8); Eosinophils % 6.7 %; Hematocrit 48.5 % (37-53); Lymphocytes # 3.2 10^3/uL (0.8-4.8); Lymphocytes % 28.9 %; Mean Corpuscular HGB Conc 31.8 g/dL (30-55); Mean Corpuscular Hemoglobin 28.7 pg (27-33); Mean Corpuscular Volume 90.3 fl (82-101); Mean Platelet Volume 8.8 fL (7.4-10.4); Monocytes # 0.7 10^3/uL (0.2-0.9); Monocytes % 5.9 %; Neutrophils # 6.29 10^3/uL (1.8-7.7); Neutrophils % 57.3 %; Nucleated Red Blood Cells % 0 %; Platelet Count 362 10^3/cmm (157-399); Red Blood Count 5.37 10^6/uL (3.85-5.65); White Blood Count 10.99 10^3/uL (3.29-11.43)
--- NOTE | 2024-05-28 21:00 | CTR_ITS ---
PROCEDURE INFORMATION: Exam: CT Head Without Contrast Exam date and time: 05/28/2024 9:06 PM Age: 43 years old Clinical indication: Altered mental status/memory loss; Additional info: Encephalopathy, altered mental status TECHNIQUE: Imaging protocol: Computed tomography of the head without contrast. Radiation optimization: All CT scans at this facility use at least one of these dose optimization techniques: automated exposure control; mA and/or kV adjustment per patient size (includes targeted exams where dose is matched to clinical indication); or iterative reconstruction. COMPARISON: CT head wo con* [id number] 05/29/2021 8:26 PM RADIATION DOSE METRICS: Total DLP (mGy-cm): 1069.28 FINDINGS: Brain: Normal. No hemorrhage. Unremarkable white matter. No mass effect. Cerebral ventricles: No ventriculomegaly. Paranasal sinuses: Visualized sinuses are unremarkable. No fluid levels. Mastoid air cells: Visualized mastoid air cells are well aerated. Bones: Age indeterminate anterior nasal bone fractures. Soft tissues: Unremarkable. CT/CT head wo con* [id number] IMPRESSION: No acute intracranial process.
[2024-05-28 21:24] LABS: Alanine Aminotransferase 23 U/L (0-41); Albumin Level 4.4 g/dL (3.5-5.2); Alcohol Level 120 mg/dL (0-10); Alkaline Phosphatase 85 U/L (40-130); Anion Gap 17.7 (5-19); Aspartate Amino Transferase 20 U/L (0-40); Blood Urea Nitrogen 14 mg/dL (6-20); Calcium 9.9 mg/dL (8.5-10.5); Carbon Dioxide 23 mmol/L (22-29); Chloride 101 mmol/L (98-107); Creatinine Clr Calc Pharmacy 128.6804; Globulin 3.1 g/dL (1.3-4.6); Glucose 103 mg/dL (65-115); Osmolality Calculated 287 mOsm/kg (285-295); Potassium 3.7 mmol/L (3.5-5.1); Salicylate 1.7 mg/dL (3-10); Sodium 138 mmol/L (136-145); Total Bilirubin 0.2 mg/dL (0.15-1.2); Total Protein 7.5 g/dL (6.6-8.7)
[2024-05-28 21:30] LABS: Acetaminophen < 5.0 ug/mL (10-30)
[2024-05-28] MEDS: acetaminophen 500 mg Tablet 1000 MG PO (23:21)
[2024-05-29 01:12] VITALS: PULSE 110; O2SAT 93
--- NOTE | 2024-05-29 01:21 | PC.NURSE ---
This nurse has been going in and out of this patients room asking for a urine sample. Pt kept insisting to give him more time to pee. @0113 this nurse got the patient up to use the restroom when the patient gave me an urine sample that appeared to be tap water. Pt stated it was not water and it was indeed urine. MD aware of situation.
--- NOTE | 2024-05-29 04:32 | PC.NURSE ---
Pt asked multiple times for a UA. Pt has refused stated he urine does not need to be tested that is not what is wrong with him. Pt has even fill UA specimen cup with water in attempt to impede testing. Pt becomes verbal escalated when asked and states I'll pee when I have to. Security and Cylinder Inspector notified and have witnessed pt's behaviors.
[2024-05-29 06:00] VITALS: PULSE 90; O2SAT 93
--- NOTE | 2024-05-29 09:04 | PC.NURSE ---
PT RESTING IN BED QUIETLY AT THIS TIME. PSA OUTSIDE ROOM.
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
--- NOTE | 2024-05-29 11:50 | PC.NURSE ---
PT AGITATED AT THIS TIME. MD AT BEDSIDE. PT REFUSING THE IM MEDICATIONS. PT VERBALLY DE-ESCALATED BY MD. VERBAL ORDERS TO HOLD MEDICATIONS AT THIS TIME.
[2024-05-29 16:42] VITALS: RESP 18
--- NOTE | 2024-05-29 20:20 | PC.NURSE ---
pt vs not collected per charge resp 18
[2024-05-29] MEDS: acetaminophen 325 mg Tablet 650 MG PO (21:55)
--- NOTE | 2024-05-30 00:16 | PC.NURSE ---
pt ref vs resp 18 charge notified
--- NOTE | 2024-05-30 06:51 | PC.NURSE ---
This PIZZA CHEF went to get vs this Patient adamantly refused vs. This PIZZA CHEF reported to the charge nurse. Pt was talked to by charge nurse and still continued to refuse. Resp 18
--- NOTE | 2024-05-30 07:00 | W.PM.NPUH&PS ---
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 He presented with a positive blood alcohol of 120 and he has not given a urine willingly. The patient is reporting significant psychological challenges he reportedly found that his was may be speaking to another ana. This has been a challenge throughout their long relationship. He reports that he has had sobriety recently but does acknowledge that he had a relapse recently but was not clear about that. He denied any issues except for a reported concern about a chip being inserted in his body but he was very concerned that we would not look on CT scans for this chip because were focused on the fact that it might be related to drug use. He was very adamant that these things that he is saying do not represent psychosis. 1. Consider restarting medication. Recommend an antipsychotic for clearly delusional content. 2. Encourage individual, group and milieu therapy 3. Continue q-15 minute check for safety 4. Recommend sober living treatment at the highest level of care to which the patient is willing to commit. 5. Obtain collateral information. 6. Evaluate for safety against the backdrop of the 96-hour hold. Involuntary Hold Information 96 Hour Hold: 96 Hour Involuntary Admission: Yes 96 Hour Hold Ending Date: 06/03/24 96 Hour Hold Ending Time: 19:58 Other Hold: Hold End Date: 03/17/24 Attestations NPU Medical Necessity Statement*: Inpatient hospitalization is medically necessary and the clinically appropriate intervention at this time. We will monitor/initiate medications and make changes as indicated. Patient will be in the hospital for over two midnights. Likely length of stay is 2-4 days. 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
[2024-05-30 08:00] VITALS: RESP 18
[2024-05-30] MEDS: multivitamin therapeutic Tablet 1 TAB PO (09:10)
[2024-05-30] MEDS: thiamine 100 mg Tablet PO (09:10)
[2024-05-30] MEDS: folic acid 1 mg Tablet PO (09:10)
[2024-05-30 12:00] VITALS: RESP 16
--- NOTE | 2024-05-30 13:01 | PC.NURSE ---
patient agitated and refused
[2024-05-30] MEDS: hyDROXYzine 25 mg Capsule 50 MG PO (15:35)
[2024-05-30] MEDS: OLANZapine 5 mg ODT PO (15:35)
[2024-05-30 16:00] VITALS: RESP 18
[2024-05-30 20:00] VITALS: BP 124/83; PULSE 85; RESP 18; O2SAT 98
--- NOTE | 2024-05-30 23:56 | PC.NURSE ---
pt ref vs charge notified resp 18
--- NOTE | 2024-05-31 06:51 | PC.NURSE ---
pt ref vs charge notified resp 16
[2024-05-31 08:00] VITALS: RESP 18
--- NOTE | 2024-05-31 09:07 | P.NPUPN_ITS ---
Subjective NPU 2 Subjective: Patient presented today reporting that he is doing better. He is denying issues with the microchip today. We discussed the fact that his experiences likey secondary to his methamphetamine use. We agreed we would restart his medication with the least his Cymbalta and prazosin restarting after discussion of the risks, benefits and alternatives he understood and agreed to proceed as is documented in this note. Mental Status Exam 2 MSE Comments: This is a well-nourished well-developed white male in hospital scrubs with adequate grooming and eye contact. No abnormal movements except for mild psychomotor agitation. Mostly cooperative with exam in mild to moderate distress. Speech was mostly normal rate and volume. Mood described as I need to get out of here, affect slightly irritable. Thought process organized. Thought content: Patient denied suicidal or homicidal ideation, there were no delusions reported or but significant paranoid, persecutory and bizarre delusions noted, he denied any visual but endorsed auditory hallucinations. Attention and concentration were intact and memory appeared unreliable but no more formally tested. He is alert and oriented x 3. Insight and judgment limited impulse control impaired. 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 He presented with a positive blood alcohol of 120 and he has not given a urine willingly. The patient is reporting significant psychological challenges he reportedly found that his was may be speaking to another ana. This has been a challenge throughout their long relationship. He reports that he has had sobriety recently but does acknowledge that he had a relapse recently but was not clear about that. He denied any issues except for a reported concern about a chip being inserted in his body but he was very concerned that we would not look on CT scans for this chip because were focused on the fact that it might be related to drug use. He was very adamant that these things that he is saying do not represent psychosis. 1. Consider restarting medication. Recommend an antipsychotic for clearly delusional content. 2. Encourage individual, group and milieu therapy 3. Continue q-15 minute check for safety 4. Recommend sober living treatment at the highest level of care to which the patient is willing to commit. 5. Obtain collateral information. 6. Evaluate for safety against the backdrop of the 96-hour hold. Involuntary Hold Information 2 96 Hour Hold: 96 Hour Involuntary Admission: Yes 96 Hour Hold Ending Date: 06/03/24 96 Hour Hold Ending Time: 19:58 Other Hold: Hold End Date: 06/03/24 Attestations NPU 2 Medical Necessity Statement*: Inpatient hospitalization is medically necessary and the clinically appropriate intervention at this time. We will monitor/initiate medications and make changes as indicated. Patient will be in the hospital for over two midnights. Likely length of stay is 2-4 days. 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
--- NOTE | 2024-05-31 10:47 | PC.NURSE ---
Morning assessment Patient irritable during morning assessment. Denies all. Refused morning vitamins. Patient states that he just wants to go home
[2024-05-31 12:00] VITALS: RESP 18
--- NOTE | 2024-05-31 15:23 | PC.NURSE ---
Agitation During visiting hour, patient's girlfriend July came to visit. Within 10 minutes of the visitation, patient yelling at partner. July made her way to the exit, while Joseph was yelling, I have a restraining order against you, July! Security were present. Mark with security quickly walked with patient to room and were able to verbally de-esculate patient. Per security, patient's girlfriend filed a 96-hour hold on him after he filed a restraining order against her, as retaliation.
[2024-05-31 16:00] VITALS: RESP 16
[2024-05-31 20:00] VITALS: RESP 18
--- NOTE | 2024-05-31 20:08 | PC.NURSE ---
Patient refused vitals. Nurse notified.
[2024-05-31 20:36] VITALS: RESP 18
--- NOTE | 2024-05-31 20:36 | PC.NURSE ---
patient refused nurse notified.
[2024-05-31] MEDS: hyDROXYzine 25 mg Capsule 50 MG PO (21:16)
[2024-05-31] MEDS: trazodone 50 mg Tablet PO (21:16)
[2024-06-01 06:00] VITALS: RESP 18; BMI 26.4
--- NOTE | 2024-06-01 06:27 | PC.NURSE ---
patient refused vitals nurse notified.
--- NOTE | 2024-06-01 09:17 | P.NPUPN_ITS ---
Subjective NPU 2 Subjective: Patient presented today reporting that things are fine. However he had another explosion during visiting hours per staff reports as he was upset that his significant other was advised not to visit secondary to his explosions the 2 days before. He reported that the reason why he lost his cool was because he was lied to. We discussed that there was a miscommunication but that is not the same as lying but he was not hearing that. He endorsed that he was fine now and was very frustrated that this technical publications writer was having a conversation about a behavior he had earlier because he had taken as needed medication and calm down. We had a discussion about the fact that his current behavior is not indicative of the type of behavior that will allow for discharge at the end of this hold and he is likely looking at at least a few day extension. He continued to refuse medication and denied any concerns other than wanting to discharge. He was very focused on the fact that we were causing him to lose money by not being able to get some job and taking no responsibility for the reason why he is in the hospital. Mental Status Exam 2 MSE Comments: This is a well-nourished well-developed white male in hospital scrubs with adequate grooming and eye contact. No abnormal movements except for mild to extreme psychomotor agitation. Mostly cooperative with exam in mild to moderate distress. Speech was mostly normal rate and volume except for times he is yelling. Mood described as I need to get out of here, affect slightly irritable. Thought process organized. Thought content: Patient denied suicidal or homicidal ideation, there were no delusions reported or but significant paranoid, persecutory and bizarre delusions noted, he denied any visual but endorsed auditory hallucinations. Attention and concentration were intact and memory appeared unreliable but no more formally tested. He is alert and oriented x 3. Insight and judgment limited impulse control impaired. 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 He presented with a positive blood alcohol of 120 and he has not given a urine willingly. The patient is reporting significant psychological challenges he reportedly found that his was may be speaking to another ana. This has been a challenge throughout their long relationship. He reports that he has had sobriety recently but does acknowledge that he had a relapse recently but was not clear about that. He denied any issues except for a reported concern about a chip being inserted in his body but he was very concerned that we would not look on CT scans for this chip because were focused on the fact that it might be related to drug use. He was very adamant that these things that he is saying do not represent psychosis. 1. Consider restarting medication. Recommend an antipsychotic for clearly delusional content. 2. Encourage individual, group and milieu therapy 3. Continue q-15 minute check for safety 4. Recommend sober living treatment at the highest level of care to which the patient is willing to commit. 5. Obtain collateral information. 6. Evaluate for safety against the backdrop of the 96-hour hold. Continued aggressive outburst make the likelihood of discharge at the end of his 96-hour hold decreased. Patient advised of this factor. Likely will be placed on a 21- day hold. Involuntary Hold Information 2 96 Hour Hold: 96 Hour Involuntary Admission: Yes 96 Hour Hold Ending Date: 06/03/24 96 Hour Hold Ending Time: 19:58 Other Hold: Hold End Date: 06/03/24 Attestations NPU 2 Medical Necessity Statement*: Inpatient hospitalization is medically necessary and the clinically appropriate intervention at this time. We will monitor/initiate medications and make changes as indicated. Likely length of stay is 2-4 days. 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
--- NOTE | 2024-06-01 12:34 | PC.NURSE ---
Per Dr. Licea, this nurse restarted patient's three home medications. Patient refused cymbalta, saying that he doesn't want it.
--- NOTE | 2024-06-01 13:59 | PC.NURSE ---
The pt refused vital signs, stating I already told everyone no . RR 18
--- NOTE | 2024-06-01 16:48 | PC.NURSE ---
At approximately 1545 the patient was sitting and using the patient phone, talking to his girlfriend, the patient was observed cussing into the phone and very agitated, and eventually started banging the phone against the wall several times. The patient abruptly got up from the chair and charged over to the bread panner and proceeded to scream and cuss in her face and stated You lied to me you bitch, do you want me to hit you . The other staff at this time proceeded to call security / code ten for assistance at 1552. The patient was very verbally aggressive and showed signs of amping up to physical aggression. millroom supervisor arrived to the unit, as this GLASS CHECKER, the other GLASS CHECKER, and bread panner annemarie up a B-52 shot. The two security guards were talking with the patient about the shots in his room, when the patient stated If you touch me with those pointers, I am going to be a mean son of a bitch and hit those fucking bitches, I am boiling alive and this is how we got to this point . The patient was given the option to take the B-52 orally if he agreed to calm down. The pt was agreeable to the oral B-52 which consisted of PO 2mg Ativan, PO 50mg Benadryl, PO 5mg of Haldol. The patient took the pills and stated You guys just like to give a lot of pills and knock people out but this is not a fix it all . The pt was educated on how in acute situations, the medications are to help ease his agitation and anxiety. The pt was resistive to learning / education. The pt laid in bed for approximately 5 minutes and then walked to the dayroom, sat down, and watched tv. Resp even and unlabored.
--- NOTE | 2024-06-01 18:20 | PC.NURSE ---
Addendum entered by Annalise Stevenson RN 06/01/24 18:42: Other hospital staff were present, such as [facility] and Selma from [facility]. Patient agitated when he saw that staff had injections ready to administer. Patient said something along the lines of don't come at me with those points or I'm going to start swinging. Patient saw this nurse specifically and he threatened to beat your fucking face in while pointing and yelling. It was eventually decided to compromise with the patient by working to lower the temperature in his room and by giving him his medications by mouth instead of injections. Patient was given ativan 2mg benadryl 50mg and haldol 5mg by mouth. Security stayed on the unit until it was determined that the patient had calmed to a safe level. Dr. Licea and Nisreen, community sports coordinator notified of Code 10. Original Note: Code 10 This writer producer was talking with a fellow patient at the bench. This patient pleasantly asked this nurse if he had any visitors. This nurse replied no and continued to talk with the other patient. Patient got on the phone during this time and within a few moments, patient is yelling at this writer producer, saying you fucking bitch, you fucking liar! This nurse tried to understand what the issue was. Patient started banging the phone against the magana. Patient got very close to this nurse and stated that he was going to hit. During this situation, this writer producer, was trying to comprehend the reason for the esculation in behavior. When this nurse would try to talk, patient would yell, Shut your fucking mouth you fucking lying bitch! Any attempts by this nurse to calm the patient were wholly impossible at this point. Patient yelling and posturing. Code 10 was called at 1552 by LEONELA Bernabe. This nurse entered the nurses' station as the patient walked down the hallway to his room, which is 170.This nurse, LEONELA Bernabe and LEONELA Yañez decided to pull IM B52 medications. The NPU staff went to the patient's room; security guards Mark and David were already present, along with Manager Mortgage LENA Darnell. Patient
[2024-06-01 21:05] VITALS: RESP 18
--- NOTE | 2024-06-01 21:05 | PC.NURSE ---
Patient refused charge nurse notified.
--- NOTE | 2024-06-01 21:11 | PC.NURSE ---
Pt refused HS dose of Prazosin stating he was fine . Lying in bed w/o c/o, states I'm going to sleep .
[2024-06-02 06:00] VITALS: RESP 18
--- NOTE | 2024-06-02 06:26 | PC.NURSE ---
Patient refused. Charge nurse notified.
--- NOTE | 2024-06-02 10:30 | PC.NURSE ---
REFUSES TO TAKE MEDICATIONS AND WILL NOT INTERACT WITH STAFF UNLESS ITS IS NEGATIVE AND TO CURSE AT STAFF. PT REFUSES TO COMPLETE ASSESSMENTS WITH RN. PT DID GET UP TO EAT BREAKFAST AND THEN WENT BACK TO ROOM. SUPPORT VOICED.
--- NOTE | 2024-06-02 15:54 | W.PM.NPUPNS ---
Subjective NPU Subjective: Patient presented today reporting that he is doing okay. He was really pushing that he was ready to leave tomorrow and was trying to attach it to the fact that he still has an opportunity to get this job and so he needs to get out and get this job. I attempted to focus on what brought him here which is his addiction and the psychosis that followed that led to him having paranoia and believing he had a chip implanted and possibly him believing that his significant other was cheating. We discussed needing to get some collateral information surrounding this issue and that we would meet in the morning and discuss whether discharge was appropriate. Mental Status Exam MSE Comments: This is a well-nourished well-developed white male in hospital scrubs with adequate grooming and eye contact. No abnormal movements except for mild psychomotor agitation. Mostly cooperative with exam in mild distress. Speech was mostly normal rate and volume except for times he is yelling. Mood described as I need to get out of here, affect slightly irritable. Thought process organized. Thought content: Patient denied suicidal or homicidal ideation, there were no delusions reported or but diminishing paranoid, persecutory and bizarre delusions noted, he denied any visual but endorsed auditory hallucinations. Attention and concentration were intact and memory appeared unreliable but no more formally tested. He is alert and oriented x 3. Insight and judgment limited impulse control impaired. 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 He presented with a positive blood alcohol of 120 and he has not given a urine willingly. The patient is reporting significant psychological challenges he reportedly found that his was may be speaking to another ana. This has been a challenge throughout their long relationship. He reports that he has had sobriety recently but does acknowledge that he had a relapse recently but was not clear about that. He denied any issues except for a reported concern about a chip being inserted in his body but he was very concerned that we would not look on CT scans for this chip because were focused on the fact that it might be related to drug use. He was very adamant that these things that he is saying do not represent psychosis. 1. Consider restarting medication. Recommend an antipsychotic for clearly delusional content. 2. Encourage individual, group and milieu therapy 3. Continue q-15 minute check for safety 4. Recommend sober living treatment at the highest level of care to which the patient is willing to commit. 5. Obtain collateral information. 6. Evaluate for safety against the backdrop of the 96-hour hold. Continued aggressive outburst make the likelihood of discharge at the end of his 96-hour hold decreased. Patient advised of this factor. Likely will be placed on a 21-day hold. Involuntary Hold Information 96 Hour Hold: 96 Hour Involuntary Admission: Yes 96 Hour Hold Ending Date: 06/03/24 96 Hour Hold Ending Time: 19:58 Other Hold: Hold End Date: 06/03/24 Attestations NPU Medical Necessity Statement*: Inpatient hospitalization is medically necessary and the clinically appropriate intervention at this time. We will monitor/initiate medications and make changes as indicated. Likely length of stay is 2-4 days. 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
[2024-06-02] MEDS: nicotine 2 mg Gum BUCCAL (18:34)
[2024-06-02] MEDS: nicotine 4 mg lozenge MUCOUS MEM (19:15)
[2024-06-02] MEDS: trazodone 50 mg Tablet PO (21:35)
[2024-06-02] MEDS: prazosin 1 mg Capsule PO (21:35)
[2024-06-02] MEDS: hyDROXYzine 25 mg Capsule 50 MG PO (21:36)
[2024-06-02 22:00] VITALS: BP 135/90; PULSE 84; RESP 18; TEMP 36.9; O2SAT 97
[2024-06-03 06:00] VITALS: BP 137/80; PULSE 100; RESP 18; TEMP 36.3; O2SAT 96
[2024-06-03 14:00] VITALS: BP 117/81; PULSE 99; RESP 17; TEMP 36.5; O2SAT 98
--- NOTE | 2024-06-03 16:12 | P.NPUDS_ITS ---
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 movements except for mild psychomotor agitation. Mostly cooperative with exam in mild distress. Speech was mostly normal rate and volume except for times he is yelling. Mood described as I need to get out of here, affect slightly irritable. Thought process organized. Thought content: Patient denied suicidal or homicidal ideation, there were no delusions reported or but diminishing paranoid, persecutory and bizarre delusions noted, he denied any visual but endorsed auditory hallucinations. Attention and concentration were intact and memory appeared unreliable but no more formally tested. He is alert and oriented x 3. Insight and judgment limited impulse control impaired. Discharge Data Studies Completed and Pending: Completed Studies During Hospitalization Category Date Time Status CT head wo con* [id number] Stat Cat Scan 05/28/24 21:00 Completed Pending at discharge Category Date Time Status Drug Screen, Urin e Stat Lab 05/29/24 01:35 Ordered Urinalysis and Mi croscopic Stat Lab 05/29/24 01:35 Ordered Radiology Impressions Head CT 05/28/24 21:00 IMPRESSION: No acute intracranial process. Laboratory Results WBC 10.99 10^3/uL (3. 29-11.43) 05/28/24 20:48 RBC 5.37 10^6/uL (3.8 5-5.65) 05/28/24 20:48 Hgb 15.40 g/dL (11.27 -16.99) 05/28/24 20:48 Hct 48.5 % (37-53) 05/28/24 20:48 MCV 90.3 fl (82-101) 05/28/24 20:48 MCH 28.7 pg (27-33) 05/28/24 20:48 MCHC 31.8 g/dL (30-55) 05/28/24 20:48 RDW 13.0 % (12.1-15.1 ) 05/28/24 20:48 Plt Count 362 10^3/cmm (157 -399) 05/28/24 20:48 MPV 8.8 fL (7.4-10.4) 05/28/24 20:48 Neut % (Auto) 57.3 % 05/28/24 20:48 Lymph % (Auto) 28.9 % 05/28/24 20:48 Barber % (Auto) 5.9 % 05/28/24 20:48 Eos % (Auto) 6.7 % 05/28/24 20:48 Baso % (Auto) 0.8 % 05/28/24 20:48 Neut # (Auto) 6.29 10^3/uL (1.8 -7.7) 05/28/24 20:48 Lymph # (Auto) 3.2 10^3/uL (0.8- 4.8) 05/28/24 20:48 Barber # (Auto) 0.7 10^3/uL (0.2- 0.9) 05/28/24 20:48 Eos # (Auto) 0.7 10^3/uL (0.0- 0.8) 05/28/24 20:48 Baso # (Auto) 0.1 10^3/uL (0.0- 0.1) 05/28/24 20:48 Nucleated RBC % (a uto) 0 % 05/28/24 20:48 Nucleated RBCs # 0.0 /100WBC 05/28/24 20:48 Sodium 138 mmol/L (136-1 45) 05/28/24 20:48 Potassium 3.7 mmol/L (3.5-5 .1) 05/28/24 20:48 Chloride 101 mmol/L (98-10 7) 05/28/24 20:48 Carbon Dioxide 23 mmol/L (22-29) 05/28/24 20:48 Anion Gap 17.7 (5-19) 05/28/24 20:48 BUN 14 mg/dL (6-20) 05/28/24 20:48 Creatinine 0.9 mg/dL (0.7-1. 2) 05/28/24 20:48 GFR Calculation 93.0 mL/min (90-1 30) 05/28/24 20:48 Glucose 103 mg/dL (65-115 ) 05/28/24 20:48 Calculated Osmolal ity 287 mOsm/kg (285- 295) 05/28/24 20:48 Calcium 9.9 mg/dL (8.5-10 .5) 05/28/24 20:48 Total Bilirubin 0.2 mg/dL (0.15-1 .2) 05/28/24 20:48 AST 20 U/L (0-40) 05/28/24 20:48 ALT 23 U/L (0-41) 05/28/24 20:48 Alkaline Phosphata se 85 U/L (40-130) 05/28/24 20:48 Total Protein 7.5 g/dL (6.6-8.7 ) 05/28/24 20:48 Albumin 4.4 g/dL (3.5-5.2 ) 05/28/24 20:48 Globulin 3.1 g/dL (1.3-4.6 ) 05/28/24 20:48 TSH 1.30 uIU/mL (0.27 -4.20) 05/28/24 20:48 Urine Color Cancelled 05/29/24 01:19 Urine Appearance Cancelled 05/29/24 01:19 Urine pH Cancelled 05/29/24 01:19 Ur Specific Gravit y Cancelled 05/29/24 01:19 Urine Protein Cancelled 05/29/24 01:19 Urine Glucose (UA) Cancelled 05/29/24 01:19 Urine Ketones Cancelled 05/29/24 01:19 Urine Blood Cancelled 05/29/24 01:19 Urine Nitrate Cancelled 05/29/24 01:19 Urine Bilirubin Cancelled 05/29/24 01:19 Prot Sulfosalicyli c Acd Cancelled 05/29/24 01:19 Urine Urobilinogen Cancelled 05/29/24 01:19 Ur Leukocyte Shannan ase Cancelled 05/29/24 01:19 Urine RBC Cancelled 05/29/24 01:19 Urine WBC Cancelled 05/29/24 01:19 Ur Squamous Epith Cells Cancelled 05/29/24 01:19 Ur Transition Epit h Cell Cancelled 05/29/24 01:19 Ur Renal Epithelia l Cell Cancelled 05/29/24 01:19 Calcium Oxalate Cr ystal Cancelled 05/29/24 01:19 Uric Acid Crystals Cancelled 05/29/24 01:19 Triple Phos Irina ls Cancelled 05/29/24 01:19 Other Crystals Cancelled 05/29/24 01:19 Amorphous Sediment Cancelled 05/29/24 01:19 Urine Bacteria Cancelled 05/29/24 01:19 Hyaline Casts Cancelled 05/29/24 01:19 Fine Granular Cast s Cancelled 05/29/24 01:19 Coarse Granular Ca sts Cancelled 05/29/24 01:19 RBC Casts Cancelled 05/29/24 01:19 Other Casts Cancelled 05/29/24 01:19 Urine Mucus Cancelled 05/29/24 01:19 Urine Trichomonas Cancelled 05/29/24 01:19 Urine Yeast Cancelled 05/29/24 01:19 Urine Sperm Cancelled 05/29/24 01:19 Ur Oval Fat Bodies Cancelled 05/29/24 01:19 Salicylates 1.7 mg/dL (3-10) L 05/28/24 20:48 Urine Opiates Scre en Cancelled 05/29/24 01:19 Acetaminophen < 5.0 ug/mL (10-3 0) L 05/28/24 20:48 Ur Barbiturates Sc reen Cancelled 05/29/24 01:19 Ur Phencyclidine S crn Cancelled 05/29/24 01:19 Ur Amphetamines Sc reen Cancelled 05/29/24 01:19 U Benzodiazepines Scrn Cancelled 05/29/24 01:19 Urine Cocaine Scre en Cancelled 05/29/24 01:19 U Marijuana (THC) Screen Cancelled 05/29/24 01:19 Ethyl Alcohol 120 mg/dL (0-10) H 05/28/24 20:48 Vitals: Last Vital Signs Temp 97.7 F 06/03/24 14:00 Pulse 99 06/03/24 14:00 Resp 17 06/03/24 14:00 BP 117/81 06/03/24 14:00 Pulse Ox 98 06/03/24 14:00 O2 Del Method Room Air 06/03/24 06:00 Discharge Plan Discharge Patient Disposition: Home Condition: Stable Prescriptions: New thiamine mononitrate (vit B1) [Vitamin B-1 (mononitrate)] 100 mg Tablet 100 mg PO DAILY 30 Days Qty: 30 1RF Continued trazodone 50 mg Tablet 50 mg PO BEDTIME PRN (Reason: Sleep) 30 Days Qty: 30 1RF prazosin 1 mg Capsule 1 mg PO BEDTIME 30 Days Qty: 30 1RF Changed duloxetine 30 mg Capsule,Delayed Release(Dr/Ec) 30 mg PO BID 30 Days Qty: 60 1RF Discharge Orders: Discharge Order (Routine); Ordered 06/03/24 Ordered By: Davonte Licea Referrals: Sherrie Atwood MD [Primary Care Provider] - Discharge Diet: Regular Discharge Activity: Resume usual activity Patient Instructions: Opioid Safety, Pain Management Discharge Attestations NPU Time Spent in Discharge Care*: less than 30 min Specific Discharge Activities: Specific discharge activities: educating patient, discussing with case therapist/social workers/dc planners, documenting/other paperwork and evaluating patient/reviewing data Coding Level of Care Code Acute Code for Chg Fwd Diagnoses Post traumatic stress disorder (PTSD) F43.10 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
[2024-06-03 16:18] VITALS: BP 117/81; PULSE 99; RESP 17; TEMP 36.5; O2SAT 98
--- NOTE | 2024-06-03 17:19 | PC.NURSE ---
For followup appointments, please call [phone]
== END 2024-06-03 17:24 | disposition home or self-care (01) | DRG 885 ==
LOC: ER 23:25 → ER IP 05-29 09:47 → NP 05-30 07:52
PROVIDERS: Admitting Provider Psychiatry & Neurology Psychiatry; Emergency Provider Emergency Medicine; PCP Family Medicine; Visit Provider Psychiatry & Neurology Psychiatry
DX: F33.3 Major depressive disorder, recurrent, severe with psychotic symptoms (principal); F15.20 Other stimulant dependence, uncomplicated; F10.90 Alcohol use, unspecified, uncomplicated; Y90.6 Blood alcohol level of 120-199 mg/100 ml; F39 Unspecified mood [affective] disorder; F60.3 Borderline personality disorder
CPT/HCPCS: 36415; 70450; 80053; 80307; 84443; 85025; 93005; 97150; 97165; 99285